=== PATIENT | male | born 1970 | race Caucasian/White ===

== ENCOUNTER 2022-08-05 10:53 | Emergency (ER) | payer BC, SELFPAY ==
[2022-08-05 10:54] VITALS: BP 190/110; PULSE 95; RESP 20; TEMP 35.8; O2SAT 98; BMI 49.0
--- NOTE | 2022-08-05 11:30 | EKG12_ITS ---
Test Reason : SOB Blood Pressure : / mmHG Vent. Rate : 078 BPM Atrial Rate : 078 BPM P-R Int : 166 ms QRS Dur : 100 ms QT Int : 386 ms P-R-T Axes : 040 -38 044 degrees QTc Int : 440 ms Normal sinus rhythm with sinus arrhythmia Left axis deviation Poor R wave progression Abnormal ECG Confirmed by ELDA GARCIA, LUZ ([id number]), primer expeditor and drier KP JUDGE ([id number]) on 08/09/2022 8:53:35 AM Referred By: YOLANDA Confirmed By:LUZ SCHROEDER MD
--- NOTE | 2022-08-05 11:31 | CT_ITS ---
STUDY: CT ABDOMEN AND PELVIS WITH CONTRAST REASON FOR EXAM: Male, 51 years old. LUQ abd pain RADIATION DOSAGE (If Supplied By Facility): CTDIvol = ( ) mGy, DLP = ( 1370.21 ) mGycm TECHNIQUE: Transaxial images were obtained from the dome of the diaphragm to the symphysis pubis without oral contrast. IV 100mL Isovue-300 was administered. Sagittal and coronal images were reconstructed. Individualized dose optimization techniques were used for this CT. COMPARISON: None. FINDINGS: The visualized lung bases are unremarkable. The visualized portions of the heart are within normal limits. There is decreased attenuation of the liver consistent with a mild degree of steatosis. There are multiple small gallstones. Normal spleen. Normal pancreas. Normal bilateral adrenal glands. Normal right kidney. Normal left kidney. There is a small hiatal hernia. The patient is status post partial gastrectomy. Normal small intestine. Normal colon. The appendix is visualized and appears normal. Normal abdominal aorta. Normal inferior vena cava. Normal retroperitoneum. Normal urinary bladder. There is evidence of prior ventral hernia repair. There are mild degenerative changes of the visualized lumbar spine. CT/Abdomen/Pelvis W IV Cont ONLY IMPRESSION: Multiple small gallstones. Status post partial gastrectomy. Mild degree of fatty infiltration of the liver. Electronically Signed: Boom Villa MD at 12:56 EST ,
--- NOTE | 2022-08-05 11:33 | ED.VIS.GI ---
HPI HPI - GI History of Present Illness Chief Complaint: Abd Pain Informant: patient Narrative Narrative: Patient is a 51-year-old male presenting with worsening left upper quadrant abdominal pain. Patient states July started having some left sided back pain in his thoracic area. This lasted for about a week and a half and then got better. He then started to have worsening pain in his left upper quadrant. This has now been going on for another week and a half. He notes over this time he has had a 28 pound weight loss, nausea with eating and oily odorous stools. He thinks he is probably eating slightly less than normal. He notes that he is straining a lot when he has a bowel movement and it is painful for him to try to urinate while standing. He gets pain in his left abdomen. He states he is never had any like this before. He continues to pass gas. He was on Toradol but it was not really helping. He states he states he is primary care doctor, Dr. Armijo, but he made him feel that he was pain seeking. Patient is have a history of Sara-en-Y gastric bypass in 2019 and subsequently a right surgical hernia repair. 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 He states he is unable to work for the past 3 weeks because of his pain. Denies any other complaints at this time. Denies any fever or chills. Denies any chest pain. No sometimes he feels short of breath but attributes it to his pain. Denies any swelling of his legs. [facility] Medical History Diabetes HTN (hypertension) Home Medications amlodipine 10 mg tablet 10 mg PO DAILY HTN 08/05/22 [History Last Taken 08/04/22] atorvastatin 10 mg tablet 10 mg PO DAILY CHOLESTEROL 08/05/22 [History Last Taken 08/04/22] lisinopril 40 mg tablet 40 mg PO DAILY HTN 08/05/22 [History Last Taken 08/04/22] metformin 500 mg tablet 500 mg PO BID DM 08/05/22 [History Last Taken 08/04/22] omeprazole 40 mg capsule,delayed release 40 mg PO DAILY GERD 08/05/22 [History Last Taken 08/04/22] sucralfate 1 gram tablet (Carafate) 1 g PO TID #20 tabs 08/05/22 [Rx Last Taken Unknown] Allergy/AdvReac Type Severity Reaction Status Date / Time No Known Allergies Allergy Verified 08/05/22 10:56 Social History Smoking Status: Never smoker ROS ROS ED Constitutional Constitutional ED: Reports weight loss; Denies chills or fever(s) Cardiovascular Cardiovascular: Denies chest pain Respiratory/Chest Respiratory/Chest: Reports dyspnea; Denies cough Gastrointestinal Gastrointestinal: Reports abdominal pain, constipation and nausea; Denies diarrhea, melena or vomiting Genitourinary Genitourinary ED: Denies dysuria, hematuria or urinary frequency Musculoskeletal Musculoskeletal: Reports back pain; Denies arthralgias or myalgias Integumentary Denies rash Neurologic Neurologic: Denies headache(s) or weakness Psychiatric Psychiatric: Denies anxiety Hematologic/Lymphatic Hematologic/Lymphatic: Denies easy bleeding or easy bruising EXAM Physical Exam Const Vital Signs: 08/05/22 10:54 08/05/22 13:04 08/05/22 15:30 Temperature 96.5 F L Temperature Source Temporal Pulse Rate 95 70 Respiratory Rate 20 H 18 18 Blood Pressure 190/110 H 153/90 H Blood Pressure Mean 136 111 Pulse Ox 98 98 Oxygen Delivery Method Room Air Room Air Positive well nourished, well developed and obese General Appearance ED: well developed and NAD; Negative for pallor Nutritional Appearance: obese HEENT Reports dry mucous membranes normocephalic and atraumatic Mouth ED: Yes dry mucous membranes Mouth: dry mucous membranes Eyes PERRL Neck supple and no JVD Resp normal respiratory effort and clear to auscultation bilaterally Cardio regular rate, regular rhythm and no murmurs GI GI Narrative: Protuberant abdomen. No fluid wave. No guarding. Mild tenderness palpation in the left upper quadrant. No peritoneal signs. Hypoactive bowel signs. Palpation: Negative for rigid Back/Spine no CVA tenderness Extremity full ROM General Extremety ED: Negative for edema or tenderness General Extremity: Negative for edema Neuro moves all extremities Sensorium / Orientation: alert, oriented to person, oriented to place and oriented to time Motor Exam: Negative for general weakness Psych mental status grossly normal and thought process normal Skin no wounds General Skin Exam: Negative for jaundice or pallor MDM MDM MDM Narrative Medical decision making narrative: Patient is evaluated for 3 weeks of what started as left back pain and now hs moved to his left upper abdomen. Vital signs are significant for high blood pressure but otherwise normal. Differential includes renal colic, muscle skeletal pain, constipation and colitis. Patient is treated with morphine, zofrans and fluids. He has some improvement of symptoms. Lab work largely unremarkable. He has a mild anemia with hemoglobin of 12.6 and I do not think this is causing or to start associate with the symptoms. CMP unremarkable. Glucose is mildly elevated at 151 however he is a normal anion gap. Patient does have a history of diabetes mellitus. Urinalysis shows occult blood of 10 however his red blood cells are normal. No signs of kidney infection patient urinalysis. CT of the abdomen pelvis shows multiple small gallstones and mild degree of fatty liver however no acute process. On repeat evaluation patient does have some mild tenderness with deep palpation of the right upper quadrant and I will add on a right upper quadrant ultrasound. It would be rare but possible that he has some biliary colic that is referring to his right side. Patient is given a dose of IV Toradol in the meantime as his pain is coming back. On repeat evaluation after ultrasound he states his pain is worsening in his left upper quadrant. Will trial a GI cocktail. Patient expresses frustration as he has been missing work for 3 weeks because of this pain and is no closer to any answers. Did explain that we did a pretty extensive work-up today and I will discussed with the surgery on-call to arrange for close outpatient follow-up. Case discussed with Dr. Pickering. He states it is possible that patient might have a ulcer at his anastomosis site. He will follow-up with the patient in the office. He recommends the patient keeping on extensive food diary to further evaluate causes and activities that worsen his pain. He recommends avoiding pain medicine or Carafate as he does not want to mask the symptoms until he can see him. This will be discussed with the patient. Repeat vital signs obtained and patient's blood pressure is improved. After GI cocktail patient does have improvement of symptoms. Patient is quite concerned about not having pain medicine I will prescribe him a course of Carafate which surgery felt was preferable to [place]. Patient reports that he does not smoke or use any tobacco products. Patient discharged and given outpatient follow-up instructions. Given return precautions. He is agreeable with plan of care. Lab Data Attestation: I reviewed the patient's lab results. Labs: Laboratory Results - last 24 hr 08/05/22 08/05/22 08/05/22 11:09 11:09 13:24 WBC 7.3 RBC 4.59 L Hgb 12.6 L Hct 38.9 L MCV 84.7 MCH 27.5 MCHC 32.4 RDW Std Deviation 50.4 H RDW Coeff of Darling 16.5 H Plt Count 298 MPV 10.2 Immature Gran % (Auto) 0.100 Neut % (Auto) 69.5 Lymph % (Auto) 19.7 Pope % (Auto) 6.6 Eos % (Auto) 3.8 Baso % (Auto) 0.3 Absolute Neuts (auto) 5.1 Absolute Lymphs (auto) 1.44 Nucleated RBC % 0 Sodium 135 L Potassium 4.2 Chloride 104 Carbon Dioxide 26.0 Anion Gap 5 BUN 13 Creatinine 1.12 Estim Creat Clear Calc 82.17 Est GFR (MDRD) Af Amer 88 Est GFR (MDRD) Non-Af 73 BUN/Creatinine Ratio 11.6 Glucose 151 H Calcium 9.4 Total Bilirubin 0.60 AST 14 L ALT 20 Alkaline Phosphatase 40 L Total Protein 10.2 H Albumin 3.2 Globulin 7.0 H Albumin/Globulin Ratio 0.5 L Lipase 132 Urine Color Yellow Urine Clarity Clear Urine pH 5.0 Ur Specific [place] 1.010 Urine Protein Negative Urine Glucose (UA) Normal Urine Ketones Negative Urine Occult Blood 10 H Urine Nitrite Negative Urine Bilirubin Negative Urine Urobilinogen Normal Ur Leukocyte Esterase Negative Urine RBC 0 SEEN Urine WBC 0 SEEN Ur Squamous Epith Cells 0 SEEN Urine Bacteria 0 SEEN Urine Mucus 0 SEEN Radiography Diagnostic Testing: Clinical Impression(s) from Imaging Studies Abdomen/Pelvis CT 08/05/22 11:31 IMPRESSION: Multiple small gallstones. Status post partial gastrectomy. Mild degree of fatty infiltration of the liver. Electronically Signed: Boom Villa MD at 12:56 EST , Gallbladder Ultrasound 08/05/22 13:40 IMPRESSION: Hepatomegaly and diffuse fatty infiltration of the liver. Multiple small gallstones in the neck of the gallbladder. Electronically Signed: Boom Villa MD at 15:12 EST , Rhythm Strip Rhythm Strip: Sinus Rhythm Rate: 78 Ectopy: None EKG Initial EKG: Attestation: I personally reviewed and interpreted this EKG as follows: Interpretation: Sinus Rhythm Comments: Normal sinus rhythm with sinus arrhythmia at a rate of 78 bpm Left axis Normal intervals Normal ST segments Prior EKG tracings: not available for review Discharge Plan Triage Chief Complaint: Abd Pain ED Provider: Kianna Holloway Dx/Rx/DC Orders Clinical Impression: Colicky left upper quadrant pain, Gallstones, History of gastric bypass Instructions: ED Gastritis Ulcer No Abx Prescriptions: New sucralfate [Carafate] 1 gram tablet 1 g PO TID Qty: 20 0RF No Action metformin 500 mg Tablet 500 mg PO BID atorvastatin 10 mg Tablet 10 mg PO DAILY omeprazole 40 mg Capsule,Delayed Release(Dr/Ec) 40 mg PO DAILY amlodipine 10 mg tablet 10 mg PO DAILY lisinopril 40 mg Tablet 40 mg PO DAILY Primary Care Provider: Rory Armijo Referrals: Adam Pickering MD [Med Staff - Active Staff] - As soon as possible Rory Armijo MD [Primary Care Provider] - Activity Restrictions/Additional Instructions: It is possible you could have an ulcer at your prior surgical site from your gastric bypass. I spoke with the surgeon, Dr. Pickering, who recommend you keep a detailed food diary as well as a diary of anything that seems to worsen your pain/symptoms for when you follow-up with him. Continue taking your antacid (omeprazole). You have also been prescribed Carafate which coats the stomach to hopefully help with your symptoms. Take it before you eat. Return to the ER if you have a progression or worsening of your symptoms. You do have gallstones however I do not think these are the cause of your symptoms at this time. Again, please follow-up with Dr. Pickering for definitive management of your gallstones. Disposition Disposition: Home, Self Care
[2022-08-05] MEDS: morphine 8 MG/ML Syringe IV (11:38)
[2022-08-05] MEDS: 0.9% Normal Saline 1,000 ML 1000 ML IV (11:38)
[2022-08-05] MEDS: Ondansetron 4 MG/2 ML Vial IV (11:38)
[2022-08-05 11:43] LABS: Absolute Lymphocyte Count 1.44 X10^3/uL (0.83-4.51); Absolute Neutrophil Count 5.1 X10^3/uL (2.0-7.7); Basophil# 0.02 X10^3/uL; Basophil% 0.3 % (0-1); Eosinophil# 0.28 X10^3/uL; Eosinophils% 3.8 % (0-5); Hematocrit 38.9 % (40-54); Hemoglobin 12.6 g/dL (13.0-16.5); Lymphocyte # 1.44 X10^3/ul (0.83-4.51); Lymphocyte % 19.7 % (19-41); Mean Corp Hgb Conc 32.4 g/dL (32-36); Mean Corpuscular Hgb 27.5 pg (27.0-32.0); Mean Corpuscular Volume 84.7 fL (80-94); Mean Platelet Vol. 10.2 fl (6.2-12.0); Monocyte# 0.48 X10^3/uL; Monocyte% 6.6 % (0-10); NRBC Flagged by Analyzer 0 % (0-5); Neutrophil # 5.07 X10^3/uL (2.7-7.7); Neutrophil % 69.5 % (47-70); Platelet Count 298 K/mm3 (150-450); RBC Distribution Width CV 16.5 % (11.6-14.6); RBC Distribution Width SD 50.4 fl (35.1-43.9); Red Blood Count 4.59 M/mm3 (4.6-6.2); White Blood Count 7.3 K/mm3 (4.4-11.0)
[2022-08-05 12:01] LABS: ALB/GLOB Ratio 0.5 RATIO (0.9-2.4); AST(SGOT) 14 U/L (15-37); Alanine Aminotransfer ALT/SGPT 20 U/L (16-61); Albumin, Serum 3.2 g/dL (3.2-5.0); Alkaline Phosphatase 40 U/L (45-117); Anion Gap 5 (5-15); BUN 13 mg/dL (7-18); BUN/Creat Ratio 11.6 RATIO (10-20); Calcium,Total 9.4 mg/dL (8.5-10.1); Chloride 104 mmol/L (98-107); Creatinine, Serum 1.12 mg/dL (0.70-1.30); EST Glomerular Filtration Rate 73 mL/min (>60); Est Glom Filt Rate - Afr Amer 88 mL/min (>60); Estimated Creatinine Clearance 82.17 ml/min; Glucose 151 mg/dL (74-106); Lipase 132 U/L (73-393); Potassium 4.2 mmol/L (3.5-5.1); Protein, Total 10.2 g/dL (6.4-8.2); Sodium Level 135 mmol/L (136-145)
[2022-08-05 13:04] VITALS: RESP 18
[2022-08-05 13:33] LABS: Bacteria 0 SEEN /hpf (None Seen); Mucous, Urine 0 SEEN /hpf (<or=2+); Red Blood Cells-Urine 0 SEEN /hpf (0-5); Squamous Epithelial Cells - UA 0 SEEN /hpf (0-5); White Blood Cells 0 SEEN /hpf (0-5)
[2022-08-05 13:36] LABS: Color, Urine Yellow (Yellow); Glucose, Dipstick Normal (Normal); Ketone-Dipstick Negative (Negative); Leukocyte Esterase-Dipstick Negative /ul (Negative); Nitrite-Dipstick Negative (Negative); Occult Blood-Urine 10 /ul (Negative); Protein-Dipstick Negative (Negative); Urine Bilirubin Dipstick Negative (Negative); Urine Clarity Clear (Clear); Urine Urobilinogen Normal (Normal)
--- NOTE | 2022-08-05 13:40 | US_ITS ---
STUDY: ABDOMINAL ULTRASOUND - RIGHT UPPER QUADRANT REASON FOR VISIT: Male, 51 years old gallstones, upper abd pain TECHNIQUE: Ultrasound evaluation of the right upper quadrant was performed with real-time and static interiano-scale imaging. TECHNICAL QUALITY: Adequate. COMPARISON: Comparison is made with prior CT scan of the abdomen and pelvis done earlier in the day. FINDINGS: Liver: The liver is enlarged and measures 19.5 cm. There is increased echogenicity consistent with fatty infiltration. The bile ducts are within normal limits. There is hepatic color flow. The direction of portal flow is hepatopetal. There is no demonstrated mass lesion. Gallbladder: There is a mildly distended gallbladder. The gallbladder wall measures 2.2 mm. There is a positive sonographic Dasilva''s sign. There is no pericholecystic fluid. There are multiple echogenic structures within the gallbladder, consistent with multiple gallstones. Common Bile Duct (C.B.D.): The common bile duct measures 4.5 mm. Pancreas: Normal size of the head, body and tail of the pancreas. There is normal echogenicity of the pancreas. There is no demonstrated pancreatic mass or cyst. Right Kidney: Normal size of the right kidney. The right kidney measures 11.7 cm x 6 x 5.5 cm. Normal renal cortex. The right cortex measures 2.1 cm. There is no demonstrated renal mass or cyst. There is no right hydronephrosis. US/Gallbladder IMPRESSION: Hepatomegaly and diffuse fatty infiltration of the liver. Multiple small gallstones in the neck of the gallbladder. Electronically Signed: Boom Villa MD at 15:12 EST ,
[2022-08-05] MEDS: Ketorolac 15 MG/ML Vial IV (14:42)
[2022-08-05 15:30] VITALS: BP 153/90; PULSE 70; RESP 18; O2SAT 98
[2022-08-05] MEDS: Mag Hydrox/Al Hydrox/Simeth 30 ML UDC PO (15:30)
== END 2022-08-05 16:16 | disposition home or self-care (01) ==
PROVIDERS: Emergency Provider Emergency Medicine; PCP Internal Medicine; Visit Provider Emergency Medicine
DX: K80.20 Calculus of gallbladder without cholecystitis without obstruction (principal); E11.65 Type 2 diabetes mellitus with hyperglycemia; I10 Essential (primary) hypertension; Z98.890 Other specified postprocedural states; Z79.899 Other long term (current) drug therapy; Z98.84 Bariatric surgery status
CPT/HCPCS: 74177; 76705; 80053; 81001; 83690; 85025; 93005; 96361; 96374; 96375; 99284; J7030; Q9967; A4216; J2405

== ENCOUNTER → 2022-08-15 | Outpatient (CLI) | payer BC, SELFPAY | END | disposition home or self-care (01) | LOC: LABSPEC 10:41 | PROVIDERS: PCP Internal Medicine; Referring Provider Surgery; Visit Provider Surgery | DX: K92.1 Melena (principal) | CPT/HCPCS: 82274 ==

== ENCOUNTER 2022-08-18 06:24 | Day surgery (SDC) | payer BC, SELFPAY ==
[2022-08-18 07:08] VITALS: BP 152/99; PULSE 117; RESP 18; TEMP 37.1; O2SAT 100; BMI 46.7
[2022-08-18] MEDS: Lactated Ringers 1,000 ML 15 ML IV (07:15)
--- NOTE | 2022-08-18 07:30 | IMM_PTH ---
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 Adam Pickering MD : 1970 BED: DIS: 08/18/2022 SPEC #: [id number] RECD: 08/18/22 14:07 STATUS: MARY RESukumar #: [id number] SUSANNAH: 08/18/22 07:[address]: Adam Pickering DEPT: IMMUNOHISTOCHEMISTRY RECD BY: Keiko Styles ENTERED: 08/18/22 14:08 SP TYPE: IMMUNO OTHR DR: Rory Armijo MD Tissues: A - Stomach, NOS Procedures: H Pylori (initial) PHYSICIAN & INSTITUTION [place] [id number] SPECIMEN INFORMATION: Tissue Source: A ? Gastric pouch Clinical Info: Abdominal pain, tarry stool, nausea, gallstones, constipation Specimen Number: [id number] CPT code: 70879 METHODOLOGY: Deparaffinized sections of prefer/formalin-fixed tissue or PAP/DQ stained slides are incubated with monoclonal/polyclonal antibodies/oligonucleotide probes. Localization is made via biotin free immunoperoxidase method. Appropriate controls are performed and reacted as expected. Results on target cell population are indicated in the following table: RESULTS: ANTIBODY / CLONE RESULT Block A H Pylori (polyclonal) negative These tests were developed and their performance characteristics determined by [facility]. They may not have been cleared or approved by the [place]. Food and Drug Administration. The FDA has determined that such clearance or approval is not necessary. The above immunohistochemical/dualISH markers are ordered and reviewed by the Pathologist. INTERPRETATION: A. Gastric pouch, biopsy: Negative for Helicobacter pylori organisms. SJ:lance 08/19/2022
--- NOTE | 2022-08-18 07:30 | EGD_PTH ---
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 Adam Pickering MD : 1970 BED: DIS: 08/18/2022 SPEC #: [id number] RECD: 08/18/22 11:03 STATUS: MARY CRAVENSukumar #: [id number] SUSANNAH: 08/18/22 07:[address]: Adam Pickering DEPT: SURGICAL PATHOLOGY RECD BY: Gwendolyn Ng ENTERED: 08/18/22 11:51 SP TYPE: EGD BIOPSY OTHR DR: Rory Armijo MD Tissues: A - Gastric mucous membrane B - Esophagus, NOS C - Rectum, NOS Procedures: Special Stain Group II Surgery Specimen Level IV Alcian Blue/PAS (control) HEADER OPERATION: Colonoscopy, EGD (MAC), biopsy PRE-OP DIAGNOSIS: Abdominal pain, tarry stool, history gastric bypass, nausea, gallstones, weight loss, constipation TISSUE SUBMITTED: A - Gastric pouch biopsy, B - Gastroesophageal junction biopsy, C - Rectal biopsy MICROSCOPIC DIAGNOSIS A. Gastric pouch, biopsy: Mild gastritis. See microscopic description and comment. B. Gastroesophageal junction, biopsy: A fragment of gastroesophageal mucosa with chronic inflammation. Intestinal metaplasia (goblet cell metaplasia) not identified. See comment. C. 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 See comment. SJ:lance 08/19/2022 COMMENT A. The results of immunohistochemistry for Helicobacter pylori will be reported separately ([id number]). B. Alcian blue/PAS stain with matched control is used in the evaluation of the specimen. C. Numerous muciphages are also noted. Correlation with clinical, endoscopic findings and appropriate follow up are necessary. MICROSCOPIC DESCRIPTION Slides are reviewed. A. The specimen shows fragments of gastric mucosa with chronic inflammatory cell infiltrates in the lamina propria consisting of lymphocytes and plasma cells, consistent with mild chronic gastritis. GROSS DESCRIPTION A - Received in fixative is one container labeled with the patient's name and designated gastric pouch biopsy. The specimen consists of one irregular fragment of light nichols soft tissue that measures 0.4 x 0.3 x 0.1 cm. The specimen is totally submitted in one cassette. B - Received in fixative is one container labeled with the patient's name and designated GE junction biopsy. The specimen consists of one irregular fragment of light nichols soft tissue that measures 0.6 x 0.2 x 0.1 cm. The specimen is totally submitted in one cassette. C - Received in fixative is one container labeled with the patient's name and designated rectal biopsy. The specimen consists of multiple irregular fragments of light nichols soft tissue that in aggregate measure 0.8 x 0.3 x 0.1 cm. The specimen is totally submitted in one cassette. / SJ:rg 08/18/2022 TC:3 CPT: 42291 x3, [id number]
--- NOTE | 2022-08-18 07:37 | PCM.HP.BLA ---
History and Physical Date of Admission: 08/18/22 Date of Service:? 08/10/22 MR#: [id number] Acct: [id number] Name:OJVITA QUEZADA Rep #: [id number] : 1970 ? ? Provider: Dr. Adam Pickering MD Age/Sex:? 51/M ? ? Location: [facility] Status: Signed Intake Vital Signs ? 08/05/2309:54 08/11/2311:58 Height 5 ft 11 in 5 ft 11 in Weight: 351 lb 8 oz 346 lb BMI 49.0 48.2 BP 190/110 H 177/126 H Blood Pressure Location ? Rt brachial Position ? Sitting Respiration 20 H 19 H Pulse 95 102 H Pulse Source ? Monitor Temp 96.5 F L 97.7 F L Temp Source Temporal Temporal Pulse Oximetry (%) 98 98 Oxygen Delivery Method ? room air Intake Visit Reasons:?ED 08/07 [facility] Chief Complaint: F/U ED Gallstones Banquet Server Required: No Is patient in pain?: No Allergies No Known Allergies Allergy (Verified 08/10/22 12:59) Medications amlodipine 10 mg tablet 10 mg PO DAILY HTN 08/05/22 [History Confirmed 08/10/22] atorvastatin 10 mg tablet 10 mg PO DAILY CHOLESTEROL 08/05/22 [History Confirmed 08/10/22] lisinopril 40 mg tablet 40 mg PO DAILY HTN 08/05/22 [History Confirmed 08/05/22] metformin 500 mg tablet 500 mg PO BID DM 08/05/22 [History Confirmed 08/10/22] omeprazole 40 mg capsule,delayed release 40 mg PO DAILY GERD 08/05/22 [History Confirmed 08/10/22] tramadol 50 mg tablet 50 mg PO Q6H PRN pain #30 tabs 08/10/22 [Rx Confirmed 08/10/22] PFSH Medical History? Diabetes HTN (hypertension) Social History?(Updated 08/10/22 @ 12:58 by Micheline Monday) Smoking Status:? Never smoker alcohol intake:? never substance use type:? does not use HPI HPI HPI: Patient is a 51 male who presents for a number of complaints of back and abdominal pain following an ER visit 08/05/2022.? They are referred for surgical consultation from Dr. Holloway emergency medicine. ? Pain is described as sharp and beginning approximately 1 month ago on 07/15/2022.? 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 When this pain persisted over the next couple days he sought evaluation at an outside hospital ER.? There he was prescribed painkillers and muscle relaxers.? He states that he then followed up with his primary care provider, Dr. Armijo and it was around the same time that he began with severe pain along his left side.? He notes that these pains seem to move downward from a left upper quadrant position.? He reports this pain as a intensity of 7/10 and more severe than the right-sided pains which have only been felt in the last couple of days.? He reports the intensity of these pains as a 4-5/10.? This discomfort has been so significant that he has been sleeping in a recliner for the last 4 weeks.? He also notes a weight loss of over 30 pounds since this pain started.? Lastly he is reporting tarry stools with a bad smell.? He denies recording any objective fevers, but gets hot at times and experiences chills.? He denies any relation of the pain to eating, does experience pain and nausea after eating.? To try to manage the pain he was previously taking tramadol which worked for 4 hours but then the pain returned.? He is also taking 6 to 8 tablets of Advil a day without food. Mr. Qureshi relates a past surgical history of a open gastric bypass procedure in October 1999 at [facility] in [facility].? He reports that this operation was complicated by a postoperative hernia within a few months after the operation due to lifting more than he should have.? This hernia was repaired with a second operation and he confirms that mesh was used.? He reports a good result with his bariatric surgery going from a maximum weight of 640 pounds preoperatively to a lowest weight of 260 pounds postoperatively.? He then states that he went to be evaluated for possible panniculectomy, but was denied insurance coverage and in an act of defiance he reports that he stopped doing what they said (that is what his medical doctor said).? He states that he has not been seen since 2000 or 2001.? He denies any history of ulcers.? He denies any tobacco use.? He has not ever undergone either upper or lower endoscopy. Patient complains of constipation along with his upper abdominal discomfort and reports that his bowel movements occur with a frequency of only once every 4 days.? This has been true for the last 4 weeks or so.? He does not have a history of constipation beyond this timeframe.? He notes that his toilet time is roughly 5 minutes and is marked by significant straining.? He has no history of hemorrhoids.? He has no personal history of diverticulitis.? He admits that he does not have a clear family history given his adopted status. He has no prior history of reflux or heartburn.? Bloating has been a problem in the last couple of days. When asked about any possible radiculopathy symptoms, he denies any weakness, burning, or numbness of his upper extremities.? He does admit to pain in his left upper thigh radiating to his back on occasion when walking. ER work-up included CT of the abdomen pelvis as well as right upper quadrant ultrasound after the CT demonstrated evidence of cholelithiasis.? Ultrasound confirmed this finding of cholelithiasis and agricultural engineering technicians reported positive sonographic Dasilva sign. ROS General General: Yes weight change and fatigue; No appetite, colon cancer, breast cancer or weakness Additional Details: Loss of 31 pounds in last month HEENT HEENT: No difficulty swallowing, eye injury, eye surgery, swollen glands or hoarseness Endo Endocrine: Yes diabetes mellitus; No thyroid disease, thyroid cancer, Hair loss, heat intolerance or cold intolerance Skin Skin: No rash or changing moles Musc Musculoskeletal: No back problems, arthritis, rheumatoid arthritis, gout or joint pain Cardio Cardiovascular: Yes high blood pressure; No murmur, pacemaker, heart disease, atrial fibrillation, heart attack, heart stent, palpitations, shortness of breat with exertion or chest pain Psych Psychiatric: No depression, anxiety or hearing voices Resp Respiratory: No shortness of breath, No sleep apnea, No cough, No COPD, No asthma, No emphysema and No wheezing Gastro Gastrointestinal: Yes abdominal pain, Yes nausea or vomiting, No diarrhea, No constipation, No blood in stool, No acid reflux, No hemorrhoids, No ulcers, No gallbladder problem and Yes black,tarry stools Ishmael Hematologic: No blood thinners, No blood disorders, No bleeding, No anemia and No blood clots Neuro Neurologic: No system reviewed and no additional complaints, except as documented, No as per HPI, No abnormal gait, No abnormal hearing, No abnormal movements, No abnormal speech, No behavioral changes, No burning sensations, No confusion, No convulsions, No disequilibrium, No dizziness, No localized weakness, No frequent falls, No headache(s), No lack of coordination, No loss of vision, No memory loss, No numbness, No other visual disturbances, No radicular pain, No restless legs, No sensory deficit, No syncope, No tingling, No tremor(s), No weakness and No other Exam Const General: in distress moderate (From discomfort) and anxious Orientation: alert, awake and oriented x3 Resp Effort & Inspection: normal respiratory effort GI Other: Morbidly obese, large well?healed midline laparotomy incision.? Nondistended.? Soft and tender in the right upper and left upper quadrants.? Patient has much more significant tenderness in the left upper quadrant in the right upper quadrant.? Patient has a negative Dasilva sign of the right upper quadrant.? There is slight voluntary guarding with palpation of the left upper quadrant. Musc Other: Paraspinal tenderness present bilaterally with palpation Assessment and Plan Assessment and Plan (1) Abdominal pain: ?Status:?Acute ?Comment: Left greater than right.? Partially reproducible with palpation.? Negative Dasilva sign.? Suspicion for involvement of gastric bypass anatomy. ?Plan: ? Cessation of NSAIDs ? Consistent PPI and Carafate use ? Tramadol 50 mg as needed for pain ? EGD to evaluate gastric pouch and Sara limb in urgent fashion (2) Tarry stool: ?Status:?Acute ?Comment: Potentially related to upper GI ulcer. ?Plan: ? Obtain fecal occult blood testing ? Diagnostic colonoscopy (3) History of gastric bypass: ?Status:?Acute ?Comment: History of Sara-en-Y gastric bypass with use of NSAID pain medications for recent back pain.? Potentially complicated by new ulcer. ?Plan: ? PPI, Carafate, EGD planned as above (4) Nausea: ?Status:?Acute (5) Gallstones: ?Status:?Acute ?Comment: Potentially incidental finding.? Exam does not clearly point to this as a source and cholecystectomy could involve significant operative risk with patient's post bypass anatomy?particularly given this was an open procedure followed by a open hernia repair with mesh.? There are also implications for accessing the biliary tree given the division of the stomach. (6) Weight loss, abnormal: ?Status:?Acute (7) Constipation: ?Status:?Acute ?Comment: Accompanied by reports of tarry stools is a 51-year-old male with no history of prior colonoscopy.? Family history unknown. ?Plan: Diagnostic colonoscopy recommended.? Plan for 2-day prep given reports of significant constipation. ? ? ? Orders: Orders Stool Occult Blood iFOB Today K92.1 - Melena ? I have examined the patient the following changes are noted: I reviewed with patient that his fecal occult blood testing mentioned above did return positive. Patient states that overall his pain has been improved with the regimen we instituted until this morning when it flared up because he was unable to take his pain medication. He reports completion of his prep and that his output is now clear. We will therefore proceed with diagnostic upper and lower endoscopy under local MAC as discussed above.
[2022-08-18 07:50] LABS: Bedside Glucose 188 mg/dL (74-106)
[2022-08-18 08:55] VITALS: BP 130/91; BP 152/99; PULSE 121; RESP 18; TEMP 36.9; O2SAT 93
[2022-08-18 09:00] VITALS: BP 139/94; BP 152/99; PULSE 117; RESP 16; O2SAT 95
[2022-08-18 09:05] VITALS: BP 137/79; BP 152/99; PULSE 107; RESP 18; O2SAT 94
--- NOTE | 2022-08-18 09:05 | OP.EGD_ITS ---
Patient Name: Willie Qureshi Procedure Date: 08/18/2022 7:14 AM Date of : 1970 Age: 51 Procedure: Upper GI endoscopy Indications: Abdominal pain in the left upper quadrant, Occult blood in stool Providers: Adam Pickering MD Referring MD: Adam Pickering MD Medicines: See the Anesthesia note for documentation of the administered medications Patient Profile: Refer to note in patient chart for documentation of history and physical. Complications: No immediate complications. Estimated blood loss: Minimal. Procedure: Pre-Anesthesia Assessment: - The heart rate, respiratory rate, oxygen saturations, blood pressure, adequacy of pulmonary ventilation, and response to care were monitored throughout the procedure. After obtaining informed consent, the endoscope was passed under direct vision. Throughout the procedure, the patient's blood pressure, pulse, and oxygen saturations were monitored continuously. The gastroscope was introduced through the mouth, and advanced to the jejunum. The upper GI endoscopy was somewhat difficult due to post-surgical anatomy. The patient tolerated the procedure fairly well. Scope In: 7:45:58 AM Scope Out: 7:58:05 AM Total Procedure Duration Time 0 hours 12 minutes 7 seconds Findings: Two non-bleeding superficial gastric ulcers with no stigmata of bleeding were found at the anastomosis. Biopsies were taken with a cold forceps for histology. Estimated blood loss was minimal. Diffuse mild inflammation characterized by erythema was found in the gastric body. No biopsies or other specimens were collected for this exam. The Z-line was irregular. Biopsies were taken with a cold forceps for histology. Estimated blood loss was minimal. The exam was otherwise without abnormality. Evidence of a gastric bypass was found. A gastric pouch with a normal size was found containing ulceration. The staple line appeared intact. The gastrojejunal anastomosis was characterized by erythema. This was traversed. The utpdj-iv-jroapyb limb was characterized by inflammation and ulceration. The jejunojejunal anastomosis was characterized by healthy appearing mucosa. Impression: - Non-bleeding gastric ulcers with no stigmata of bleeding. Biopsied. - Gastritis. No specimens collected. - Z-line irregular. Biopsied. - The examination was otherwise normal. - Gastric bypass with a normal-sized pouch and intact staple line. Gastrojejunal anastomosis characterized by erythema. Recommendation: - Discharge patient to home (via wheelchair). - Resume previous diet today. - Continue present medications. - Await pathology results. - Telephone my office for pathology results in 1 week. Procedure Code(s): --- Professional --- 08442, Esophagogastroduodenoscopy, flexible, transoral; with biopsy, single or multiple Diagnosis Code(s): --- Professional --- K25.9, Gastric ulcer, unspecified as acute or chronic, without hemorrhage or perforation K29.70, Gastritis, unspecified, without bleeding K22.8, Other specified diseases of esophagus Z98.84, Bariatric surgery status R10.12, Left upper quadrant pain R19.5, Other fecal abnormalities CPT copyright 2017 [employer]. All rights reserved. The codes documented in this report are preliminary and upon maitre d review may be revised to meet current compliance requirements. Adam Pickering MD 08/18/2022 9:05:38 AM This report has been signed electronically. Number of Addenda: 0 Note Initiated On: 08/18/2022 7:14 AM
--- NOTE | 2022-08-18 09:07 | OP.CCLET_ITS ---
08/18/2022 Rory Armijo Md Re : Upper GI endoscopy procedure for Willie Qureshi Dear Aleksander This procedure was performed on August. My impressions and recommendations are as follows: Impressions : - Non-bleeding gastric ulcers with no stigmata of bleeding. Biopsied. - Gastritis. No specimens collected. - Z-line irregular. Biopsied. - The examination was otherwise normal. - Gastric bypass with a normal-sized pouch and intact staple line. Gastrojejunal anastomosis characterized by erythema. Recommendations : - Discharge patient to home (via wheelchair). - Resume previous diet today. - Continue present medications. - Await pathology results. - Telephone my office for pathology results in 1 week. My findings are described in the full procedure note, which is enclosed. If I can be of further assistance, please feel free to contact me at Doctor phone number(s): , Work: . Sincerely, Adam Pickering MD 08/18/2022 9:05:38 AM This report has been signed electronically.
[2022-08-18 09:10] VITALS: BP 133/81; BP 152/99; PULSE 102; RESP 16; TEMP 36.8; O2SAT 95
--- NOTE | 2022-08-18 09:14 | OP.COLON_ITS ---
Patient Name: Willie Qureshi Procedure Date: 08/18/2022 7:59 AM Date of : 1970 Age: 51 Procedure: Colonoscopy Indications: Abdominal pain in the left upper quadrant, Heme positive stool, Constipation Providers: Adam Pickering MD Referring MD: Adam Pickering MD Medicines: See the Anesthesia note for documentation of the administered medications Patient Profile: Refer to note in patient chart for documentation of history and physical. Last Colonoscopy: none. The patient's first colonoscopy is today. Complications: No immediate complications. Estimated blood loss: Minimal. Procedure: Pre-Anesthesia Assessment: - The heart rate, respiratory rate, oxygen saturations, blood pressure, adequacy of pulmonary ventilation, and response to care were monitored throughout the procedure. - The heart rate, respiratory rate, oxygen saturations, blood pressure, adequacy of pulmonary ventilation, and response to care were monitored throughout the procedure. After I obtained informed consent, the scope was passed under direct vision. Throughout the procedure, the patient's blood pressure, pulse, and oxygen saturations were monitored continuously. The Colonoscope was introduced through the anus and advanced to the cecum, identified by its appearance. The colonoscopy was technically difficult and complex due to poor bowel prep and significant looping. Successful completion of the procedure was aided by changing the patient's position and lavage. The patient tolerated the procedure well. The quality of the bowel preparation was fair. Scope In: 8:01:29 AM Scope Withdrawal Time 0 hours 23 minutes 42 seconds Scope Out: 8:50:57 AM Total Procedure Duration Time 0 hours 49 minutes 28 seconds Findings: There was a large lipoma, in the proximal ascending colon. No biopsies or other specimens were collected for this exam. Localized mild mucosal changes characterized by congestion (edema) and granularity were found in the proximal rectum. Biopsies were taken with a cold forceps for histology. Estimated blood loss was minimal. The exam was otherwise without abnormality on direct and retroflexion views. Impression: - Preparation of the colon was fair. - Large lipoma in the proximal ascending colon. No specimens collected. - Localized mild mucosal changes were found in the proximal rectum. Biopsied. - The examination was otherwise normal on direct and retroflexion views. Recommendation: - Discharge patient to home (via wheelchair). - Resume previous diet today. - Continue present medications. - Await pathology results. - Repeat colonoscopy date to be determined after pending pathology results are reviewed for surveillance based on pathology results. - Telephone my office for pathology results in 1 week. Procedure Code(s): --- Professional --- 43733, Colonoscopy, flexible; with biopsy, single or multiple Diagnosis Code(s): --- Professional --- D17.5, Benign lipomatous neoplasm of intra-abdominal organs K62.89, Other specified diseases of anus and rectum R10.12, Left upper quadrant pain R19.5, Other fecal abnormalities K59.00, Constipation, unspecified CPT copyright 2017 [employer]. All rights reserved. The codes documented in this report are preliminary and upon invoice coder review may be revised to meet current compliance requirements. Adam Pickering MD 08/18/2022 9:13:47 AM This report has been signed electronically. Number of Addenda: 0 Note Initiated On: 08/18/2022 7:59 AM
--- NOTE | 2022-08-18 09:14 | OP.CCLET_ITS ---
08/18/2022 Rory Armijo Md Re : Colonoscopy procedure for Willie Qureshi Dear Aleksander This procedure was performed on August. My impressions and recommendations are as follows: Impressions : - Preparation of the colon was fair. - Large lipoma in the proximal ascending colon. No specimens collected. - Localized mild mucosal changes were found in the proximal rectum. Biopsied. - The examination was otherwise normal on direct and retroflexion views. Recommendations : - Discharge patient to home (via wheelchair). - Resume previous diet today. - Continue present medications. - Await pathology results. - Repeat colonoscopy date to be determined after pending pathology results are reviewed for surveillance based on pathology results. - Telephone my office for pathology results in 1 week. My findings are described in the full procedure note, which is enclosed. If I can be of further assistance, please feel free to contact me at Doctor phone number(s): , Work: . Sincerely, Adam Pickering MD 08/18/2022 9:13:47 AM This report has been signed electronically.
[2022-08-18 09:27] VITALS: BP 152/99
== END 2022-08-18 09:35 | disposition home or self-care (01) ==
LOC: EN 06:26 → AC 06:28
PROVIDERS: PCP Internal Medicine; Referring Provider Surgery; Visit Provider Surgery
PROC: 0DJD8ZZ Inspection of Lower Intestinal Tract, Via Natural or Artificial Opening Endoscopic (ICD-10-PCS; CPT 45378; principal; 2022-08-18 07:25)
DX: K29.70 Gastritis, unspecified, without bleeding (principal); E11.9 Type 2 diabetes mellitus without complications; K80.20 Calculus of gallbladder without cholecystitis without obstruction; R19.5 Other fecal abnormalities; K59.00 Constipation, unspecified; K25.9 Gastric ulcer, unspecified as acute or chronic, without hemorrhage or perforation; M54.9 Dorsalgia, unspecified; R14.0 Abdominal distension (gaseous); Z98.84 Bariatric surgery status; R10.12 Left upper quadrant pain; D17.5 Benign lipomatous neoplasm of intra-abdominal organs; K62.89 Other specified diseases of anus and rectum
CPT/HCPCS: 45380; 43239; 82962; 88305; 88313; 88342; J7120; J2405

== ENCOUNTER 2022-09-02 10:03 | Emergency (ER) | payer BC, SELFPAY ==
[2022-09-02 10:04] VITALS: BP 187/122; PULSE 100; RESP 16; TEMP 36.2; O2SAT 100; BMI 46.1
--- NOTE | 2022-09-02 10:23 | EDS_ITS ---
HPI History of Present Illness Chief Complaint: Abd Pain Narrative Narrative: 51-year-old male here with abdominal pain, back pain notes pain is overall for several months. States he initially injured his back at work several months ago. Patient denies any saddle anesthesia, urinary tension, bowel or bladder incontinence, lower extremity weakness, fever or IV drug use, no recent spinal manipulation or surgery, no recent urinary catheterization. He also notes abdominal pain early satiety decreased appetite and nausea. He endorses 50 pound weight loss over the last couple months that is unintentional. Denies any history of cancer. States he is follow-up with GI and had colonoscopy and EGD with no significant findings [facility] Medical History (Updated 09/02/22 @ 15:[address] Ankit Smith, DO) Alcohol use Back pain CPAP (continuous positive airway pressure) dependence Diabetes Dietary restriction High cholesterol HTN (hypertension) Non-smoker Wears dentures Home Medications amlodipine 10 mg tablet 10 mg PO DAILY HTN 08/05/22 [History Last Taken 08/04/22] atorvastatin 10 mg tablet 10 mg PO DAILY CHOLESTEROL 08/05/22 [History Last Taken 08/04/22] lisinopril 40 mg tablet 40 mg PO DAILY HTN 08/05/22 [History Last Taken 08/04/22] metformin 500 mg tablet 500 mg PO BID DM 08/05/22 [History Last Taken 08/04/22] omeprazole 40 mg capsule,delayed release 40 mg PO DAILY GERD 08/05/22 [History Last Taken 08/04/22] tramadol 50 mg tablet 50 mg PO Q6H PRN pain #30 tabs 08/10/22 [Rx Last Taken Unknown] cinnamon bark 500 mg capsule (Cinnamon) 1,200 mg PO DAILY 08/11/22 [History Last Taken Unknown] ondansetron 4 mg disintegrating tablet 4 mg PO Q8H PRN PRN Nausea #10 tabs 09/02/22 [Rx Last Taken Unknown] oxycodone 5 mg capsule 5 mg PO Q8H PRN pain 14 days #42 caps 09/02/22 [Rx Last Taken Unknown] Allergy/AdvReac Type Severity Reaction Status Date / Time No Known Allergies Allergy Verified 09/02/22 10:04 Surgical History Hx of gastric bypass Hx of umbilical hernia repair Social History (Updated 08/10/22 @ 12:58 by Micheline Monday) Smoking Status: Never smoker alcohol intake: never substance use type: does not use ROS ROS ED ROS Narrative Constitutional: Denies fever HEENT: Denies sore throat Neck: Denies neck pain Cardiovascular: Denies chest pain, syncope Respiratory: Denies shortness of breath GI: Endorses abdominal pain : Denies changes in urinary habits Musculoskeletal: Endorses back pain Neurologic: Denies numbness weakness or loss of sensation Skin denies rash EXAM Physical Exam Narrative Exam Narrative: Nursing triage notes reviewed, Vital signs reviewed Constitutional: please see mdm HENT: MMM Eyes: Pupils equal round and reactive to light, Extraocular muscles intact Neck: No stridor, no JVD, full neck ROM Lungs: Clear to auscultation, No wheezing or rales. No increased work of breathing, no conversational dyspnea, no accessory muscle use, no nasal flaring. No respiratory distress noted Heart: Regular rate and rhythm, No murmurs, No rubs and No gallops, 2+ distal pulses (radial, femoral, posterior tibial) in all extremities Abdomen: Soft, there is no tenderness, rigidity, rebound or guarding, no obvious peritoneal signs, no palpable pulsatile abdominal masses, no auscultated abdominal bruit : No CVAT Extremities: No edema Neuro: No focal neurological deficits, cranial nerves II through XII intact, 5/5 strength in all extremities. Intact sensation to light touch in all extremities, 2+ reflexes bilateral patella dens. Normal gait. No ataxia. Intact sensation L1-S1 dermatomal distributions. Intact 5/5 strength in hip flexion (T12-L3). Knee extension (L2-L4). Ankle dorsiflexion (L4-L5). Ankle plantar flexion (S1). Great toe extension (L5). 2+ patellar and Achilles DTRs. Skin: No rash or lesions noted Const Vital Signs: 09/02/22 10:04 09/02/22 15:40 09/02/22 16:02 Temperature 97.2 F L Temperature Source Temporal Pulse Rate 100 77 77 Respiratory Rate 16 16 16 Blood Pressure 187/122 H 165/85 H 177/89 H Blood Pressure Mean 143 Pulse Ox 100 96 98 Oxygen Delivery Method [facility] MDM MDM Narrative Medical decision making narrative: Chief Complaint: Abdominal pain, back External records reviewed: CT scan in July 2022 shows gallstones. Gallbladder ultrasound that time showed distended gallbladder, positive Dasilva sign but no pericholecystic fluid I considered the following differential diagnosis: Abdominal obstruction, perforation, gallbladder etiologies, pancreatitis, bony abnormality to the thoracic or lumbar spine I obtained a broad lab and imaging work-up to further elucidate etiology of patient's complaint. Labs without evidence of systemic inflammation, anemia, no evidence of an anion gap to suggest endorgan hypoperfusion, no significant electrolyte abnormalities. No evidence of hepatobiliary obstruction or pancrea titis. Imaging showed no evidence of acute gallbladder pathology or acute surgical pathology to abdomen pelvis. The patient's imaging of his thoracic and lumbar spine were concerning for multiple bone lesions concerning for metastatic disease. Patient was hemodynamically stable, he did not require hospitalization at this time. I did discuss the case with the scheduling center at her local [facility] who was able to schedule the patient a prompt outpatient oncology visit with Dr. Hernandez. Did give the patient pain medicine at home, work note and instructions to return if symptoms change or worsen in any way. Factors affecting care: Hypertension, history of gallstones Social determinants of health: Never smoker History obtained from others: None Shared decision making: I will have a discussion with the patient and or visitors regarding risk/benefits of further testing or admission. They will be made aware of of the risk/benefits inherent in this decision they will be given the opportunity to voice understanding. Consults: Fast pass [facility] Lab Data Attestation: I reviewed the patient's lab results. Lab results narrative: CBC without leukocytosis, severe anemia, no thrombocytopenia. BMP without evidence of significant electrolyte abnormalities, no anion gap, no acute kidney injury. LFTs show no evidence of hepatobiliary pathology. Lipase is wnl indicating no pancreatic inflammation. Labs: Laboratory Results - last 24 hr 09/02/22 09/02/22 09/02/22 11:10 11:10 15:18 WBC 5.1 RBC 4.81 Hgb 13.4 Hct 41.3 MCV 85.9 MCH 27.9 MCHC 32.4 RDW Std Deviation 56.0 H RDW Coeff of [place] 17.7 H Plt Count 239 MPV 10.2 Immature Gran % (Auto) 0.200 Neut % (Auto) 54.8 Lymph % (Auto) 30.8 [place] % (Auto) 10.1 H Eos % (Auto) 3.7 Baso % (Auto) 0.4 Absolute Neuts (auto) 2.8 Absolute Lymphs (auto) 1.56 Nucleated RBC % 0 Sodium 140 Potassium 3.8 Chloride 105 Carbon Dioxide 27.0 Anion Gap 8 BUN 22 H Creatinine 0.92 Estim Creat Clear Calc 100.04 Est GFR (MDRD) Af Amer 110 Est GFR (MDRD) Non-Af 91 BUN/Creatinine Ratio 23.8 H Glucose 151 H Calcium 9.2 Total Bilirubin 0.30 Direct Bilirubin 0.09 AST 15 ALT 34 Alkaline Phosphatase 36 L Total Protein 9.8 H Albumin 3.0 L Globulin 6.8 H Lipase 125 Urine Color Yellow Urine Clarity Clear Urine pH 5.0 Ur Specific [place] 1.015 Urine Protein 15 H Urine Glucose (UA) Normal Urine Ketones Negative Urine Occult Blood 10 H Urine Nitrite Negative Urine Bilirubin Negative Urine Urobilinogen 1 H Ur Leukocyte Esterase 25 H Urine RBC 0 SEEN Urine WBC 0-5 SEEN Ur Squamous Epith Cells 0-5 SEEN Urine Bacteria RARE Urine Mucus 0 SEEN Radiography Diagnostic Testing: Clinical Impression(s) from Imaging Studies Abdomen/Pelvis CT 09/02/22 10:54 IMPRESSION: Status post subtotal gastrectomy. Heterogeneous appearance of the collapsed T8 vertebrae. Correlation with a bone scan is recommended for further evaluation. Electronically Signed: Boom Villa MD at 14:44 EDT , Gallbladder Ultrasound 09/02/22 10:54 IMPRESSION: Hepatomegaly and fatty infiltration of the liver. No definite gallstones are seen at this time. Electronically Signed: Boom Villa MD at 12:20 EDT , Lumbar Spine CT 09/02/22 11:07 IMPRESSION: Diffuse posterior disc bulge at the L4-L5 level causing central canal stenosis and bilateral neural foraminal stenosis. Heterogeneous appearance of the posterior aspect of the L1 vertebrae on the left side. Lytic lesions involving the left iliac bone as well as the right as described. A bone scan is recommended. Electronically Signed: Boom Villa MD at 14:48 EDT , Thoracic Spine CT 09/02/22 11:07 IMPRESSION: Multiple bony lesions involving the axial and appendicular skeletons as described. A bone scan should be ruled out. Electronically Signed: Boom Villa MD at 14:50 EDT , Discharge Plan Triage Chief Complaint: Abd Pain ED Provider: Ankit Smith Dx/Rx/DC Orders Clinical Impression: Weight loss, abnormal, Back pain, Abdominal pain, Nausea, Lesion of bone of th oracic spine, Lesion of bone of lumbosacral spine Instructions: Abdominal Pain Prescriptions: New oxycodone 5 mg capsule 5 mg PO Q8H PRN (Reason: pain) 14 Days Qty: 42 0RF ondansetron 4 mg tablet,disintegrating 4 mg PO Q8H PRN PRN (Reason: Nausea) Qty: 10 0RF No Action tramadol 50 mg tablet 50 mg PO Q6H PRN (Reason: pain) Qty: 30 0RF metformin 500 mg Tablet 500 mg PO BID atorvastatin 10 mg Tablet 10 mg PO DAILY omeprazole 40 mg Capsule,Delayed Release(Dr/Ec) 40 mg PO DAILY amlodipine 10 mg tablet 10 mg PO DAILY lisinopril 40 mg Tablet 40 mg PO DAILY cinnamon bark [Cinnamon] 500 mg Capsule 1,200 mg PO DAILY Stand Alone Forms: ED Work / School Excuse Other Ambulatory Orders: Fast Pass: Oncology Referral [facility] (Routine) Facility: [facility] - Location: [facility] Ordered By: Dr. Ankit Smith Primary Care Provider: Rory Armijo Referrals: Rory Armijo MD [[facility]] - Activity Restrictions/Additional Instructions: Please take oral pain medication as needed. A referral to Oncology here at [facility] on 09/08/2022 at 11:00am Disposition Disposition: Home, Self Care Discharge Date/Time: 09/02/22 16:03
--- NOTE | 2022-09-02 10:54 | CT_ITS ---
STUDY: CT ABDOMEN AND PELVIS WITH CONTRAST REASON FOR EXAM: Male, 51 years old. Abdominal pain -- IV PO Contrast. Prior gastric bypass surgery and umbilical hernia repair. RADIATION DOSAGE (If Supplied By Facility): CTDIvol = ( 21.1 ) mGy, DLP = ( 1949.04 ) mGycm TECHNIQUE: Transaxial images were obtained from the dome of the diaphragm to the symphysis pubis with oral contrast. Oral and amp; IV Gastrografin and amp; 100mL Isovue-300 was administered. Sagittal and coronal images were reconstructed. Individualized dose optimization techniques were used for this CT. COMPARISON: Comparison is made with prior examination dated August 05, 2022. FINDINGS: The visualized lung bases are unremarkable. Coronary artery calcification. There is decreased attenuation of the liver consistent with steatosis. There are multiple small gallstones in the region of the neck of the gallbladder.. Normal spleen. Normal pancreas. Normal bilateral adrenal glands. Normal right kidney. Normal left kidney. The patient is status post subtotal gastrectomy and gastric bypass surgery. Normal small intestine. Normal colon. The appendix is visualized and appears normal. Normal abdominal aorta. Normal inferior vena cava. Normal retroperitoneum. Normal urinary bladder. Normal abdominal wall. Almost complete collapse of the T8 vertebrae. The vertebral body as a heterogeneous appearance. Correlation with a bone scan is recommended. CT/Abdomen/Pelvis WITH Contrast IMPRESSION: Status post subtotal gastrectomy. Heterogeneous appearance of the collapsed T8 vertebrae. Correlation with a bone scan is recommended for further evaluation. Electronically Signed: Boom Villa MD at 14:44 EDT ,
--- NOTE | 2022-09-02 10:54 | US_ITS ---
STUDY: ABDOMINAL ULTRASOUND - RIGHT UPPER QUADRANT REASON FOR VISIT: Male, 51 years old Right upper quadrant pain, history of gallstones TECHNIQUE: Ultrasound evaluation of the right upper quadrant was performed with real-time and static interiano-scale imaging. TECHNICAL QUALITY: Limited. Examination limited due to a combination of factors including obesity and bowel gas. COMPARISON: Comparison is made with prior study. Thyroid 29/09/2022. FINDINGS: Liver: The liver is enlarged and measures 18.9 cm. There is increased echogenicity consistent with fatty infiltration. The bile ducts are within normal limits. There is hepatic color flow. The direction of portal flow is hepatopetal. There is no demonstrated mass lesion. Gallbladder: Normal distended gallbladder. The gallbladder wall measures 2.3 mm. There is a negative sonographic Dasilva''s sign. There is no pericholecystic fluid. There are no gallstones. Common Bile Duct (C.B.D.): The common bile duct measures 6.9 mm. Pancreas: There is nonvisualization of the pancreas due to overlying bowel gas. Right Kidney: Normal size of the right kidney. The right kidney measures 11.6 cm x 5.5 cm x 4.9 cm. Normal renal cortex. The right cortex measures 1.7 cm. There is no demonstrated renal mass or cyst. There is no right hydronephrosis. US/Gallbladder IMPRESSION: Hepatomegaly and fatty infiltration of the liver. No definite gallstones are seen at this time. Electronically Signed: Boom Villa MD at 12:20 EDT ,
--- NOTE | 2022-09-02 11:07 | CT_ITS ---
STUDY: CT LUMBAR SPINE WITHOUT CONTRAST REASON FOR EXAM: Male, 51 years old. Chronic back pain. RADIATION DOSAGE (If Supplied By Facility): CTDIvol = ( 59.72 ) mGy, DLP = ( 1765.16 ) mGycm TECHNIQUE: The patient was scanned in a multi detector CT scanner. High resolution transaxial imaging was performed. Images were obtained from L1 to S1 level. Sagittal and coronal images were reconstructed. Individualized dose optimization techniques were used for this CT. COMPARISON: None FINDINGS: Normal lumbar lordosis. There is no substantial scoliosis. Heterogeneous appearance of the posterior aspect of the L1 vertebrae on the left side. Correlation with the bone scan is recommended. L1-2: Normal endplates. Normal disc height and morphology. Normal bilateral facet joints. Normal central canal and bilateral lateral recesses. Normal bilateral intervertebral neural foramina. L2-3: Normal endplates. Normal disc height and morphology. Normal bilateral facet joints. Normal central canal and bilateral lateral recesses. Normal bilateral intervertebral neural foramina. L3-4: Normal endplates. Normal disc height and morphology. Normal bilateral facet joints. Normal central canal and bilateral lateral recesses. Normal bilateral intervertebral neural foramina. L4-5: Diffuse posterior disc bulge. This causes a mild degree of central canal stenosis as well as a moderate degree of bilateral neural foraminal stenosis. L5-S1: Normal endplates. Normal disc height and morphology. Normal bilateral facet joints. Normal central canal and bilateral lateral recesses. Normal bilateral intervertebral neural foramina. There is evidence of a 1.1 cm x 2 cm lytic lesion in the left iliac bone. This also evidence of a 2.2 cm x 2.2 cm lytic lesion in the posterior aspect of the left iliac bone. There is a 1 cm x 1.2 cm lytic lesion in the midportion of the right iliac bone. CT/Spine Lumbar without Contrast IMPRESSION: Diffuse posterior disc bulge at the L4-L5 level causing central canal stenosis and bilateral neural foraminal stenosis. Heterogeneous appearance of the posterior aspect of the L1 vertebrae on the left side. Lytic lesions involving the left iliac bone as well as the right as described. A bone scan is recommended. Electronically Signed: Boom Villa MD at 14:48 EDT ,
--- NOTE | 2022-09-02 11:07 | CT_ITS ---
STUDY: CT THORACIC SPINE WITHOUT CONTRAST REASON FOR EXAM: Male, 51 years old. Back pain RADIATION DOSAGE (If Supplied By Facility): CTDIvol = ( 52.14 ) mGy, DLP = ( 1971.05 ) mGycm TECHNIQUE: The patient was scanned in a multi detector CT scanner. High resolution imaging was performed. Images were obtained from T1 to T12 vertebral level. Sagittal and coronal images were reconstructed. Individualized dose optimization techniques were used for this CT. COMPARISON: None. FINDINGS: I suspect a 2.4 cm x 1.8 cm lytic lesion in the proximal left humerus. Scattered lytic lesions seen in the posterior aspects of both multiple ribs. Normal kyphosis of the thoracic spine. There is no substantial scoliosis. There is complete collapse of the T8 vertebrae with a heterogeneous soft tissue mass in the spinal stenosis. Heterogeneous appearance of multiple thoracic vertebrae. Metastatic disease should be ruled out. Correlation with a bone scan is recommended. The soft tissue structures are unremarkable. CT/Spine Thoracic without Contras IMPRESSION: Multiple bony lesions involving the axial and appendicular skeletons as described. A bone scan should be ruled out. Electronically Signed: Boom Villa MD at 14:50 EDT ,
[2022-09-02] MEDS: Morphine 4 MG/ML Syringe IV (11:15)
[2022-09-02] MEDS: 0.9% Normal Saline 1,000 ML 1000 ML IV (11:15)
[2022-09-02 11:21] LABS: Absolute Lymphocyte Count 1.56 X10^3/uL (0.83-4.51); Absolute Neutrophil Count 2.8 X10^3/uL (2.0-7.7); Basophil# 0.02 X10^3/uL; Basophil% 0.4 % (0-1); Eosinophil# 0.19 X10^3/uL; Eosinophils% 3.7 % (0-5); Hematocrit 41.3 % (40-54); Hemoglobin 13.4 g/dL (13.0-16.5); Lymphocyte # 1.56 X10^3/ul (0.83-4.51); Lymphocyte % 30.8 % (19-41); Mean Corp Hgb Conc 32.4 g/dL (32-36); Mean Corpuscular Hgb 27.9 pg (27.0-32.0); Mean Corpuscular Volume 85.9 fL (80-94); Mean Platelet Vol. 10.2 fl (6.2-12.0); Monocyte# 0.51 X10^3/uL; Monocyte% 10.1 % (0-10); NRBC Flagged by Analyzer 0 % (0-5); Neutrophil # 2.78 X10^3/uL (2.7-7.7); Neutrophil % 54.8 % (47-70); Platelet Count 239 K/mm3 (150-450); RBC Distribution Width CV 17.7 % (11.6-14.6); Red Blood Count 4.81 M/mm3 (4.6-6.2); White Blood Count 5.1 K/mm3 (4.4-11.0)
[2022-09-02 11:39] LABS: AST(SGOT) 15 U/L (15-37); Alanine Aminotransfer ALT/SGPT 34 U/L (16-61); Alkaline Phosphatase 36 U/L (45-117); Anion Gap 8 (5-15); BUN 22 mg/dL (7-18); BUN/Creat Ratio 23.8 RATIO (10-20); Bilirubin, Direct 0.09 mg/dL (0.00-0.30); Calcium,Total 9.2 mg/dL (8.5-10.1); Chloride 105 mmol/L (98-107); Creatinine, Serum 0.92 mg/dL (0.70-1.30); EST Glomerular Filtration Rate 91 mL/min (>60); Est Glom Filt Rate - Afr Amer 110 mL/min (>60); Estimated Creatinine Clearance 100.04 ml/min; Globulin 6.8 g/dL (2.2-4.2); Glucose 151 mg/dL (74-106); Lipase 125 U/L (73-393); Potassium 3.8 mmol/L (3.5-5.1); Protein, Total 9.8 g/dL (6.4-8.2); Sodium Level 140 mmol/L (136-145)
[2022-09-02 15:27] LABS: Mucous, Urine 0 SEEN /hpf (<or=2+); Red Blood Cells-Urine 0 SEEN /hpf (0-5)
[2022-09-02 15:40] VITALS: BP 165/85; PULSE 77; RESP 16; O2SAT 96
[2022-09-02 15:41] LABS: Glucose, Dipstick Normal (Normal); Ketone-Dipstick Negative (Negative); Leukocyte Esterase-Dipstick 25 /ul (Negative); Nitrite-Dipstick Negative (Negative); Occult Blood-Urine 10 /ul (Negative); Protein-Dipstick 15 mg/dl (Negative); Specific Gravity, Urine 1.015 (1.002-1.030); Urine Bilirubin Dipstick Negative (Negative); Urine Urobilinogen 1 mg/dl (Normal)
[2022-09-02 15:42] LABS: Color, Urine Yellow (Yellow); Urine Clarity Clear (Clear)
[2022-09-02 15:49] LABS: Squamous Epithelial Cells - UA 0-5 SEEN /hpf (0-5); White Blood Cells 0-5 SEEN /hpf (0-5)
[2022-09-02 15:50] LABS: Bacteria RARE /hpf (None Seen)
[2022-09-02 16:02] VITALS: BP 177/89; PULSE 77; RESP 16; O2SAT 98
== END 2022-09-02 16:03 | disposition home or self-care (01) ==
PROVIDERS: Emergency Provider Emergency Medicine; PCP Internal Medicine; Visit Provider Emergency Medicine
DX: R10.9 Unspecified abdominal pain (principal); S34.119A Complete lesion of unspecified level of lumbar spinal cord, initial encounter; E11.9 Type 2 diabetes mellitus without complications; M54.9 Dorsalgia, unspecified; I10 Essential (primary) hypertension; E78.00 Pure hypercholesterolemia, unspecified; R63.4 Abnormal weight loss; R11.0 Nausea; M89.8X8 Other specified disorders of bone, other site
CPT/HCPCS: 72128; 72131; 74177; 76705; 80048; 80076; 81001; 83690; 85025; 96361; 96374; 99283; J7030; Q9967; A4216

== ENCOUNTER → 2022-09-12 | Outpatient (CLI) | payer BC, SELFPAY ==
--- NOTE | 2022-09-12 09:17 | RAD_ITS ---
INDICATION: GAMMOPATHY AND BONE LESIONS EXAMINATION/TECHNIQUE: X-RAY - XR Bone Survey Complete 23 VIEWS COMPARISON: CT thoracic spine 09/02/2022 FINDINGS: SOFT TISSUES: No soft tissue swelling or gas. No radiopaque foreign body. BONES/JOINTS: No acute fracture. Well-defined lytic lesion distal left clavicle. Vertebral plana T8. Joint spaces anatomically aligned. RAD/Bone Survey Comp(Axial&Append) IMPRESSION: Lytic lesion distal left clavicle and vertebral plana at T8. Findings are consistent with multiple myeloma. Electronically Signed: Heraclio Katz MD at 16:45 EDT ,
== END | disposition home or self-care (01) ==
LOC: RAD 09:15
PROVIDERS: PCP Internal Medicine; Visit Provider Internal Medicine Hematology & Oncology
DX: M89.9 Disorder of bone, unspecified (principal); D47.2 Monoclonal gammopathy
CPT/HCPCS: 77075

== ENCOUNTER → 2022-09-15 | Outpatient (CLI) | payer BC, SELFPAY ==
[2022-09-15] VITALS (9 sets, daily range): BP systolic 135–176; BP diastolic 86–110; PULSE 74–89; RESP 12–20; TEMP 36.9; O2SAT 93–97; BMI 46.4
--- NOTE | 2022-09-15 | IMM_PTH ---
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 Tim Wisdom MD : 1970 BED: DIS: 09/15/2022 SPEC #: [id number] RECD: 09/16/22 11:47 STATUS: MARY RESukumar #: [id number] SUSANNAH: 09/15/22 00:[address]: Tim Wisdom DEPT: IMMUNOHISTOCHEMISTRY RECD BY: Keiko Styles ENTERED: 09/16/22 11:48 SP TYPE: IMMUNO OTHR DR: Dr. Karla Washington MD Tissues: B - Bone marrow of iliac crest Procedures: CD138 (add) KAPPA (add) LAMBDA (add) CD45 (initial) PHYSICIAN & INSTITUTION [place] [id number] SPECIMEN INFORMATION: Tissue Source: B ? Bone marrow clot Clinical Info: Bone lesions Specimen Number: [id number] CPT code: 61229, 39520 x3 METHODOLOGY: Deparaffinized sections of prefer/formalin-fixed tissue or PAP/DQ stained slides are incubated with monoclonal/polyclonal antibodies/oligonucleotide probes. Localization is made via biotin free immunoperoxidase method. Appropriate controls are performed and reacted as expected. Results on target cell population are indicated in the following table: RESULTS: ANTIBODY / CLONE RESULT Block B CD45 (RP2/18) positive CD138 (B-A38) positive [place] (polyclonal) positive Lambda (polyclonal) negative These tests were developed and their performance characteristics determined by [facility]. They may not have been cleared or approved by the U.S. Food and Drug Administration. The FDA has determined that such clearance or approval is not necessary. The above immunohistochemical/dualISH markers are ordered and reviewed by the Pathologist. INTERPRETATION: B. Bone marrow clot: Mild increase of plasma cells noted with kappa monoclonality. See comment. SJ:lance 09/19/2022 Comment: Mild increase of small lymphocytes is also noted. Case has been reviewed in consultation with Dr. Hinkle who concurs with the above diagnosis. IDC:AM
--- NOTE | 2022-09-15 07:39 | CT_ITS ---
PROCEDURE: CT GUIDED bone marrow biopsy of the posterior right iliac bone. DATE: September 15, 2022. INDICATION: Male, 51 years old. Elevated IgG. PHYSICIAN: Boom Villa M.D. RADIATION DOSAGE (If Supplied By Facility): CTDIvol = ( 22 ) mGy, DLP = ( 972.95 ) mGycm PROCEDURE: The risks, benefits, and alternatives to the procedure were explained to the patient. The specific risk of hemorrhage requiring further treatment or intervention was detailed and accepted. Follow-up instructions were discussed with the patient as well. Written informed consent was obtained. The patient was brought into the CT suite and placed in the prone position. . An appropriate entry site was identified. The overlying skin was prepped and draped in the usual sterile fashion. 1% lidocaine was administered subcutaneously for local anesthesia. Conscious sedation was performed. The patient received 2 mg of Versed and 50 mcg of fentanyl intravenously. Conscious sedation was started at 9:01 AM and terminated at 920 the patient was independently monitored by the department nurse. Under CT guidance, a bone marrow biopsy and bone marrow aspirate of the posterior right iliac bone were performed utilizing 11-gauge bone marrow biopsy needle system. The specimens were then placed in the appropriate fluid and transported to the laboratory for analysis. Hemostasis was obtained. The patient tolerated the procedure well without immediate complications. CT/Biopsy/Inj or Needle Placement IMPRESSION: Successful CT guided bone marrow biopsy and bone marrow aspirate of the posterior right iliac bone, as described above. The conscious sedation protocol was followed. Electronically Signed: Boom Villa MD at 9:57 EDT ,
[2022-09-15 07:45] LABS: Absolute Lymphocyte Count 2.17 X10^3/uL (0.83-4.51); Absolute Neutrophil Count 2.7 X10^3/uL (2.0-7.7); Basophil# 0.02 X10^3/uL; Basophil% 0.3 % (0-1); Eosinophil# 0.29 X10^3/uL; Hematocrit 42.8 % (40-54); Hemoglobin 13.6 g/dL (13.0-16.5); Lymphocyte # 2.17 X10^3/ul (0.83-4.51); Lymphocyte % 37.7 % (19-41); Mean Corp Hgb Conc 31.8 g/dL (32-36); Mean Corpuscular Hgb 28.5 pg (27.0-32.0); Mean Corpuscular Volume 89.5 fL (80-94); Mean Platelet Vol. 10.1 fl (6.2-12.0); Monocyte# 0.54 X10^3/uL; Monocyte% 9.4 % (0-10); NRBC Flagged by Analyzer 0 % (0-5); Neutrophil # 2.72 X10^3/uL (2.7-7.7); Neutrophil % 47.3 % (47-70); Platelet Count 275 K/mm3 (150-450); RBC Distribution Width CV 18.4 % (11.6-14.6); RBC Distribution Width SD 59.6 fl (35.1-43.9); Red Blood Count 4.78 M/mm3 (4.6-6.2); White Blood Count 5.8 K/mm3 (4.4-11.0)
[2022-09-15 08:17] LABS: Partial Thromboplast Time 24.6 Seconds (24.1-36.2); Prothrombin Time (Protime)PT. 13.1 SECONDS (11.7-14.9)
--- NOTE | 2022-09-15 09:00 | BMB_PTH ---
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 Tim Wisdom MD : 1970 BED: DIS: 09/15/2022 SPEC #: [id number] RECD: 09/15/22 10:00 STATUS: MARY CHRISTIANO #: [id number] SUSANNAH: 09/15/22 09:[address]: Tim Wisdom DEPT: BONE MARROW RECD BY: Gwendolyn Ng ENTERED: 09/15/22 10:21 SP TYPE: BMB SURJIT DR: Dr. Karla Washington MD Tissues: A - Bone marrow, NOS B - Bone marrow, NOS C - Bone marrow, NOS Procedures: Decalcification bone/plaque Bone Marrow Aspiration Bone Marrow Core Biopsy Iron Stain Bone Marrow HEADER OPERATION: Bone marrow biopsy and aspiration PRE-OP DIAGNOSIS: Bone lesions TISSUE SUBMITTED: A - Core, B - Clot, C - Smears, and send outs (flow, cytogenetics and MM FISH) BONE MARROW DIAGNOSIS Bone marrow core, clot and aspirate smears: Normocellular marrow with mild plasmacytosis with kappa monoclonality. See comment. SJ:lance 09/19/2022 COMMENT B. Immunohistochemistry ([id number]) supports the above diagnosis. Bone marrow core entirely consists of peripheral blood clots and hematopoietic elements are not seen. Aspirate smears show hemodilution. Rare erythroid, myeloid and plasma cells are noted. Bone marrow aspirate clot is limited in evaluation with rare marrow particulates. FISH panel for myeloma and Cytogenetic studies are pending. Correlation with clinical, radiologic findings and appropriate follow up are necessary. This case was reviewed and diagnosis discussed with Dr. Wisdom on 09/28/2022. Case has been reviewed in consultation with Dr. Hinkle who concurs with the above diagnosis. IDC:AM BONE MARROW STUDY Slides are reviewed. CBC DATE: 09/15/2022 WBC 5.8; RBC 4.78; HGB 13.6; HCT 42.8; MCV 89.5; RDW 18.4; PLTS 275,000 SEGS 47.3%; LYMPHS 37.3%; MONOS 9.4%; EOS 5.0%; BASOS 0.3% PERIPHERAL SMEAR: Submitted. RBC: Normocytic and normochromic. WBC: Unremarkable. The WBC count is compatible to as reported above. PLTS: Adequate. BONE MARROW ASPIRATE DIFFERENTIAL: Not performed. ASPIRATE FINDINGS: Site: Not specified Aspicular, Acellular Comment: All submitted smears are examined. The smears show marked hemodilution. Rare erythroid, myeloid cells and plasma cells are noted. CORE BIOPSY FINDINGS: Site: Not specified Comment: The specimen entirely consists of blood clot. Hematopoietic cells are not identified. ASPIRATE CLOT FINDINGS: Site: Not specified Marrow particles: Rare Cellularity: 50% M/E ratio: Within normal limits. Megakaryocytes: Present and adequate in number. Granulomas: Absent. Lymphoid aggregates: Absent. Atypical infiltrates: Present Comment: Mild increase of plasma cells are noted. Immunohistochemistry shows mild increase of plasma cells with kappa monoclonality. Plasma cells comprise about 5% of total nucleated cell population. Mild increase of interstitial small lymphocytes is also noted. The specimen is limited in evaluation due to small size of marrow particle. SPECIAL STAINS WITH MATCHED CONTROLS: Iron: Absent Reticulin: No significant increase of reticulin fibers is noted. PAS: Highlights myeloid cells and megakaryocytes. BONE MARROW GROSS A - Received is a container labeled with the patient's name and designated bone marrow. The specimen consists of a scant amount of soft tissue. The specimen is totally submitted for cell block preparation. B - Received in two syringes labeled with the patient's name and designated bone marrow is a specimen that consists of approximately 8 ml of reddish-nichols fluid that on filtration yields multiple irregular fragments of reddish-nichols tissue measuring in aggregate 2.5 x 2.0 x 0.2 cm. The specimen is totally submitted in one cassette. C - Also received are 15 unstained and 1 peripheral stained slides. The unstained slides are submitted for appropriate staining. Also received is one green top tube which is sent to our reference lab for flow, cytogenetics and MM FISH. / AM:lance 09/15/2022 TC: CPT: 45750, 90578, 49280 x2, 90315 x3, 71229 ADDENDUM ADDENDUM ADDENDUM ADDENDUM ADDENDUM ADDENDUM ADDENDUM ADDENDUM 09/28/2022 09:54 ADDENDUM 09/28/2022 09:54 ADDENDUM 09/28/2022 09:54 ADDENDUM 09/28/2022 09:54 ADDENDUM 09/28/2022 09:54 [facility] CYTOGEN[facility]IC RESULT: 46,XY[20] INTERPRETATION: Normal male karyotype was observed in twenty metaphases analyzed. Please see complete report in e-chart or EMR
[2022-09-15] MEDS: fentaNYL 100 MCG/2 ML Ampul IV ×2 (09:01→09:17)
[2022-09-15] MEDS: Midazolam 2 MG/2 ML Syringe IV ×2 (09:01→09:17)
[2022-09-15] MEDS: Lidocaine 2% (20 ml mdv) 20 ML Vial INFILT (09:12)
[2022-09-28 09:56] LABS: Miscellaneous Lab Procedure 2 SEE PATH REPORT
== END | disposition home or self-care (01) ==
PROVIDERS: PCP Internal Medicine; Referring Provider Internal Medicine Hematology & Oncology; Visit Provider Internal Medicine Hematology & Oncology
DX: M89.9 Disorder of bone, unspecified (principal); D47.2 Monoclonal gammopathy; Z76.89 Persons encountering health services in other specified circumstances
CPT/HCPCS: 38222; 36415; 77012; 85025; 85610; 85730; 88305; 88311; 88313; 88341; 88342; 99156; J7050; A4216

== ENCOUNTER → 2022-10-04 | Outpatient (CLI) | payer BC, SELFPAY ==
[2022-10-04] VITALS (9 sets, daily range): BP systolic 106–178; BP diastolic 83–113; PULSE 67–94; RESP 12–20; TEMP 36.9; O2SAT 92–98; BMI 44.3
--- NOTE | 2022-10-04 | BMB_PTH ---
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 Tim Wisdom MD : 1970 BED: DIS: 10/04/2022 SPEC #: [id number] RECD: 10/04/22 10:06 STATUS: MARY CHRISTIANO #: [id number] SUSANNAH: 10/04/22 00:[address]: Tim Wisdom DEPT: BONE MARROW RECD BY: Guevara Villalba ENTERED: 10/04/22 10:07 SP TYPE: BMB SURJIT DR: Dr. Karla Washington MD Tissues: A - Bone marrow, NOS B - Bone marrow, NOS C - Bone marrow, NOS Procedures: Bone Marrow Aspiration Bone Marrow Core Biopsy Iron Stain Bone Marrow HEADER OPERATION: Bone marrow biopsy and aspiration PRE-OP DIAGNOSIS: IgG-K monoclonal protein, lytic lesions TISSUE SUBMITTED: A - Core, B - Clot, C - Smears, and send outs (flow and MM FISH) BONE MARROW DIAGNOSIS Bone marrow biopsy, clot and aspiration: IgG kappa restricted plasma cell neoplasm. Markedly hypocellular and hemodilute specimen. See comment. AM:lance 10/07/2022 COMMENT Plasma cell population is approximately 4% in the aspirate. Flow cytometry analysis reveal an IgG kappa-restricted plasma cell population. The abnormal plasma cells are medium sized. The complete flow report is viewable in EMR. Reference is made to the patient?s previous bone marrow biopsy on 09/19/22 ([id number]) with similar findings. Case has been reviewed in consultation with Dr. Torres who concurs with the above diagnosis. IDC:SJ BONE MARROW STUDY Slides are reviewed. CBC DATE: 10/04/2022 WBC 5.7; RBC 4.66; HGB 13.6; HCT 42.6; MCV 91.4; RDW 18.1; PLTS 278,000 SEGS 41.6%; LYMPHS 42.8%; MONOS 8.2%; EOS 6.8%; BASOS 0.4% PERIPHERAL SMEAR: Submitted. RBC: Normocytic, normochromic WBC: Occasional reactive lymphocytes noted. BONE MARROW ASPIRATE DIFFERENTIAL: Rare maturing bone marrow cells. Markedly hemodilute with plasma cells at approximately 4%. ASPIRATE FINDINGS: Site: Not specified Aspicular Hypocellular Markedly hemodilute. Rare maturing bone marrow cells. Plasma cells approximately 4%. CORE BIOPSY FINDINGS: Site: Not specified Cellularity %: Not applicable M/E ratio: Not applicable Comment: No bone present. Only clotted blood with rare maturing bone marrow cells. ASPIRATE CLOT FINDINGS: Site: Not specified Cellularity %: Not applicable M/E ratio: Not applicable Comment: Rare maturing bone marrow cells. Plasma cells comprise 3-4%. SPECIAL STAINS (with matched controls): Iron: Aspicular Reticulin: Within normal limits. PAS: Highlights myeloid elements and megakaryocytes. BONE MARROW GROSS A - Received is a container labeled with the patient's name and designated bone marrow. The specimen consists of a scant amount of soft tissue. The specimen is totally submitted for cell block preparation. B - Received labeled with the patient's name and designated bone marrow is a specimen that consists of approximately 7 ml of bloody fluid that on filtration yields multiple irregular fragments of red-nichols soft tissue measuring in aggregate 2.3 x 2.0 x 0.2 cm. The specimen is totally submitted in one cassette. C - Also received are 15 unstained and 1 peripheral stained slides. The unstained slides are submitted for appropriate staining. Also received are two green top tubes which are sent to our reference lab for flow and MM FISH. / AM:lance 10/04/2022 TC:? CPT: 99563, 21745, 16093 x2, 07579 x3 ADDENDUM ADDENDUM ADDENDUM ADDENDUM ADDENDUM ADDENDUM ADDENDUM ADDENDUM ADDENDUM ADDENDUM ADDENDUM ADDENDUM ADDENDUM ADDENDUM 11/14/2022 10:36 ADDENDUM 11/14/2022 10:36 ADDENDUM 11/14/2022 10:36 ADDENDUM 11/14/2022 10:36 ADDENDUM 11/14/2022 10:36 FLUORESCENCE IN-SITU HYBRIDIZATION (FISH) FROM [facility] MYELOMA PROGNOSIS INTERPRETATION: 1. No evidence of IGH-MAF [translocation t(14;16)] gene rearrangement. 2. No evidence of RB1 monosomy (13q14 deletion). 3. No evidence of CCND1-IGH [translocation t(11;14)] gene rearrangement, and no evidence for trisomy 11 or gain of 11q. 4. No evidence of p53 (17p13) deletion or amplification. 5. No evidence of FGFR3-IGH [translocation t(4;14)] gene rearrangement. 6. Negative for 1q21/CKS1B gain. Please see complete report in e-chart or EMR
--- NOTE | 2022-10-04 07:38 | CT_ITS ---
PROCEDURE: CT GUIDED bone marrow biopsy and bone marrow aspiration of the posterior right iliac bone. DATE: October 04, 2022. INDICATION: Male, 51 years old. Multiple myeloma. PHYSICIAN: Boom Villa M.D. RADIATION DOSAGE (If Supplied By Facility): CTDIvol = ( 21 ) mGy, DLP = ( 780.64 ) mGycm. Individualized dose optimization techniques were utilized. PROCEDURE: The risks, benefits, and alternatives to the procedure were explained to the patient. The specific risk of hemorrhage requiring further treatment or intervention was detailed and accepted. Follow-up instructions were discussed with the patient as well. Written informed consent was obtained. The patient was brought into the CT suite and placed in the prone position.. . An appropriate entry site was identified. The overlying skin was prepped and draped in the usual sterile fashion. 1% lidocaine was administered subcutaneously for local anesthesia. Conscious sedation was performed. The patient received 3 mg of Versed and 75 mcg of fentanyl intravenously. Conscious sedation was started at 8:55 AM and terminated at 9:15. The patient was independently monitored by the department nurse. Under CT guidance, a bone marrow biopsy and bone marrow aspirate were performed of the posterior right iliac bone. The specimens were then placed in the appropriate fluid and transported to the laboratory for analysis. Hemostasis was obtained. The patient tolerated the procedure well without immediate complications. CT/Biopsy/Inj or Needle Placement IMPRESSION: Successful CT guided bone marrow biopsy and aspiration of the posterior aspect of the right iliac bone, as described above. The conscious sedation protocol was followed. Electronically Signed: Boom Villa MD at 9:52 EDT ,
[2022-10-04 07:50] LABS: Absolute Lymphocyte Count 2.44 X10^3/uL (0.83-4.51); Absolute Neutrophil Count 2.4 X10^3/uL (2.0-7.7); Basophil# 0.02 X10^3/uL; Basophil% 0.4 % (0-1); Eosinophil# 0.39 X10^3/uL; Eosinophils% 6.8 % (0-5); Hematocrit 42.6 % (40-54); Hemoglobin 13.6 g/dL (13.0-16.5); Lymphocyte # 2.44 X10^3/ul (0.83-4.51); Lymphocyte % 42.8 % (19-41); Mean Corp Hgb Conc 31.9 g/dL (32-36); Mean Corpuscular Hgb 29.2 pg (27.0-32.0); Mean Corpuscular Volume 91.4 fL (80-94); Mean Platelet Vol. 9.8 fl (6.2-12.0); Monocyte# 0.47 X10^3/uL; Monocyte% 8.2 % (0-10); NRBC Flagged by Analyzer 0 % (0-5); Neutrophil # 2.37 X10^3/uL (2.7-7.7); Neutrophil % 41.6 % (47-70); Platelet Count 278 K/mm3 (150-450); RBC Distribution Width CV 18.1 % (11.6-14.6); RBC Distribution Width SD 60.7 fl (35.1-43.9); Red Blood Count 4.66 M/mm3 (4.6-6.2); White Blood Count 5.7 K/mm3 (4.4-11.0)
[2022-10-04 08:02] LABS: Prothrombin Time (Protime)PT. 12.7 SECONDS (11.7-14.9)
[2022-10-04 08:03] LABS: Partial Thromboplast Time 24.4 Seconds (24.1-36.2)
[2022-10-04] MEDS: fentaNYL 100 MCG/2 ML Ampul IV ×2 (08:55→09:14)
[2022-10-04] MEDS: Midazolam 2 MG/2 ML Syringe IV ×2 (08:55→09:14)
[2022-10-04] MEDS: Lidocaine 2% (20 ml mdv) 20 ML Vial INFILT (09:07)
== END | disposition home or self-care (01) ==
PROVIDERS: PCP Internal Medicine; Referring Provider Internal Medicine Hematology & Oncology; Visit Provider Internal Medicine Hematology & Oncology
DX: C90.00 Multiple myeloma not having achieved remission (principal); E66.01 Morbid (severe) obesity due to excess calories; E11.9 Type 2 diabetes mellitus without complications; Z01.812 Encounter for preprocedural laboratory examination; I10 Essential (primary) hypertension; E78.5 Hyperlipidemia, unspecified; Z98.84 Bariatric surgery status; D47.2 Monoclonal gammopathy; M89.9 Disorder of bone, unspecified; M54.9 Dorsalgia, unspecified; G47.33 Obstructive sleep apnea (adult) (pediatric); Z99.89 Dependence on other enabling machines and devices; R10.9 Unspecified abdominal pain
CPT/HCPCS: 38222; 36415; 77012; 85025; 85610; 85730; 88305; 88311; 88313; 99156; J7050; A4216

== ENCOUNTER → 2022-10-13 | Outpatient (CLI) | payer BC, SELFPAY ==
[2022-10-13 11:27] LABS: Amphetamine Urine VISTA NEGATIVE (<1000 ng/mL); Barbiturate Urine VISTA NEGATIVE (< 200 ng/mL); Benzodiazepine Urine VISTA NEGATIVE (< 200 ng/mL); Cocaine Urine VISTA NEGATIVE (< 300 ng/mL); Ecstacy Urine VISTA NEGATIVE (< 500 ng/mL); Methadone Urine VISTA NEGATIVE (< 300 ng/mL); PCP Urine VISTA NEGATIVE (< 25 ng/mL); THC Urine VISTA NEGATIVE (< 50 ng/mL); Vista UDS pH Range 5
== END | disposition home or self-care (01) ==
LOC: LAB 10:55
PROVIDERS: PCP Internal Medicine; Referring Provider Anesthesiology Pain Medicine; Visit Provider Anesthesiology Pain Medicine
DX: F11.20 Opioid dependence, uncomplicated (principal)
CPT/HCPCS: 80307

== ENCOUNTER 2022-11-16 13:53 | Emergency (ER) | payer BC, SELFPAY ==
[2022-11-16 13:56] VITALS: BP 164/115; PULSE 109; RESP 18; TEMP 35.9; O2SAT 100; BMI 44.9
--- NOTE | 2022-11-16 14:23 | CT_ITS ---
STUDY: CT ABDOMEN AND PELVIS WITHOUT CONTRAST REASON FOR EXAM: Male, 51 years old. Right flank pain. History multiple myeloma. RADIATION DOSAGE (If Supplied By Facility): CTDIvol = ( 24.18 ) mGy, DLP = ( 1353.14 ) mGycm TECHNIQUE: Transaxial images were obtained from the dome of the diaphragm to the symphysis pubis without oral contrast, and without intravenous contrast. Sagittal and coronal images were reconstructed. Individualized dose optimization techniques were used for this CT. COMPARISON: Comparison is made with prior study September 02, 2022 and August 05, 2022. FINDINGS: Mild degree of right basilar atelectasis. Coronary artery calcification. Normal liver. Mildly distended gallbladder lumen. Tiny gallstones at the base of the gallbladder lumen. Normal spleen. There is diffuse atrophy of the pancreas. Normal bilateral adrenal glands. Normal right kidney. Normal left kidney. Surgical clips are seen in the stomach suggestive of a prior gastric bypass surgery. Normal small intestine. Normal colon. The appendix is visualized and appears normal. Normal abdominal aorta. Normal inferior vena cava. Normal retroperitoneum. Normal urinary bladder. Stable calcification in the right vas deferens. Normal abdominal wall. Almost collapse of the T8 vertebrae. Paravertebral soft tissue mass surrounding the T8 vertebrae. Several lucencies are seen in the iliac bones bilaterally. Patient has a known multiple myeloma. Multiple bone findings as described. Slightly distended gallbladder lumen with gallstones. Fatty infiltration of the liver. Electronically Signed: Boom Villa MD at 15:16 EDT , CT/Abdomen/Pelvis without Cont IMPRESSION: undefined
--- NOTE | 2022-11-16 14:24 | ED.VIS.BACK ---
HPI History of Present Illness Chief Complaint: Back Detail of Chief Complaint: Back pain Informant: patient Narrative Narrative: Patient presents the emergency department with complaint of severe back pain. Patient states that he is in the process of being worked up for multiple myeloma. Patient has a collapsed T8 vertebrae which back surgeon told him could not be fixed or repaired. He has been seen by oncology and they have attempted bone biopsy twice and have not gotten good biopsy results therefore he was just at [facility] for sedation and biopsy of his pelvic bone. Patient states he started having pain afterwards in his right flank and pain that radiates around the sides to the abdomen. He had no nausea or vomiting. Patient states that his shading painter Dr. Cecilio Trujillo increased his fentanyl patch and will discontinue his oxycodone. Patient denies urinary symptoms. No history of kidney stones. Patient denies fevers. [facility] Medical History Alcohol use Back pain Bone and joint lesions of yaws Bone lesion CPAP (continuous positive airway pressure) dependence Diabetes Dietary restriction Gammopathy High cholesterol HTN (hypertension) Hypertension Non-smoker Normal colonoscopy Wears dentures Home Medications amlodipine 10 mg tablet 10 mg PO DAILY HTN 08/05/22 [History Last Taken 08/04/22] atorvastatin 10 mg tablet 10 mg PO DAILY CHOLESTEROL 08/05/22 [History Last Taken 08/04/22] lisinopril 40 mg tablet 40 mg PO DAILY HTN 08/05/22 [History Last Taken 08/04/22] metformin 500 mg tablet 500 mg PO BID DM 08/05/22 [History Last Taken 08/04/22] omeprazole 40 mg capsule,delayed release 40 mg PO DAILY GERD 08/05/22 [History Last Taken 08/04/22] ondansetron 4 mg disintegrating tablet 4 mg PO Q8H PRN PRN Nausea #10 tabs 09/02/22 [Rx Last Taken Unknown] oxycodone 5 mg capsule 5 mg PO Q8H PRN pain 14 days #42 caps 09/02/22 [Rx Last Taken 09/15/22 0640] carvedilol 3.125 mg tablet 3.125 mg PO BID 09/07/22 [History Last Taken Unknown] cholecalciferol (vitamin D3) 25 mcg (1,000 unit) capsule 25 mcg PO DAILY #30 caps 09/08/22 [Rx Last Taken Unknown] fentanyl 25 mcg/hr transdermal patch 1 patch transdermal Q72H 10/04/22 [History Last Taken Unknown] mecobalamin (vitamin B12) 1,000 mcg lozenges 1,000 mcg PO DAILY #60 ea 11/08/22 [Rx Last Taken Unknown] oxycodone-acetaminophen 5 mg-325 mg tablet 1 tab PO Q6H PRN PRN Pain 3 days #12 TABLETS 11/16/22 [Rx Last Taken Unknown] Allergy/AdvReac Type Severity Reaction Status Date / Time No Known Allergies Allergy Verified 11/16/22 13:54 Family History Other Adopted Surgical History Hx of gastric bypass Hx of umbilical hernia repair Social History household members: spouse current occupational status: employed 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 Smoking Status: Never smoker Electronic Cigarette Use: not used alcohol intake: never substance use type: does not use do you feel safe at home: Yes ROS ROS ED Review of Systems ROS Unobtainable: other Constitutional Constitutional ED: Reports lethargy; Denies chills, fever(s), sweats or weight loss Eyes Eyes: Denies blurry vision, change in vision or diplopia ENT ENT ED: Denies rhinorrhea or sore throat Cardiovascular Cardiovascular: Denies chest pain, orthopnea or racing heartbeat Respiratory/Chest Respiratory/Chest: Denies cough, dyspnea, dyspnea on exertion, orthopnea or sputum Gastrointestinal Gastrointestinal: Reports abdominal pain and constipation; Denies diarrhea, nausea or vomiting Genitourinary Genitourinary ED: Denies dysuria, hematuria or urinary frequency Musculoskeletal Musculoskeletal: Reports back pain; Denies arthralgias, myalgias or neck pain Integumentary Denies abscess, Abrasions or rash Neurologic Neurologic: Denies headache(s) or weakness Psychiatric Psychiatric: Denies anxiety, depression or suicidal thoughts Endocrine Endocrinology: Denies polydipsia, polyphagia or polyuria Hematologic/Lymphatic Hematologic/Lymphatic: Denies easy bleeding, easy bruising or lymphadenopathy Allergic/Immunologic Allergic/Immunologic ED: Denies mouth swelling, tongue swelling or urticaria EXAM Physical Exam Const Vital Signs: 11/16/22 13:56 Temperature 96.6 F L Temperature Source Temporal Pulse Rate 109 H Respiratory Rate 18 Blood Pressure 164/115 H Blood Pressure Mean 131 Pulse Ox 100 Oxygen Delivery Method Room Air Positive well nourished and well developed General Appearance ED: well developed and NAD HEENT Reports TM's clear and moist mucous membranes normocephalic and atraumatic; Negative for trauma or tenderness Tympanic Membrane ED: Yes TM's clear Eyes PERRL and EOMs intact bilaterally General Eye ED: Negative for pale conjunctiva or scleral icterus Neck no lymphadenopathy, supple and no JVD General: Negative for tenderness Chest Wall inspection of chest normal and palpation of chest normal Chest: Negative for tenderness Resp normal respiratory effort and clear to auscultation bilaterally Effort and Inspection: Negative for respiratory distress or pain with movement Auscultation: Negative for rhonchi, wheezes or diminished lung sounds Cardio regular rate, regular rhythm, S1 normal heart sound, S2 normal heart sound and no murmurs Peripheral Pulses: pulses 2+ throughout GI normal to inspection, nondistended, normoactive bowel sounds, soft to palpation, non-distended and no masses GI Narrative: Tenderness palpation over the right upper quadrant as well as the abdomen diffusely. With some guarding. There is no rebound, rigidity, or peritoneal signs. Patient has a central incision in the abdomen from prior gastric bypass surgery. Patient does have CVA tenderness on the right. Back/Spine no CVA tenderness and no thoracic nor lumbar tenderness Back/Spine Narrative: Evaluation of his back does reveal a small dressing over the left posterior iliac crest where he had his biopsy. No evidence of erythema or cellulitic changes noted. Extremity normal to inspection General Extremety ED: Negative for edema General Extremity: Negative for edema Neuro oriented x3, CN's II-XII intact bilaterally, no sensory deficits noted and gait normal Sensorium / Orientation: awake, alert, oriented to person, oriented to place and oriented to time Motor Exam: strength 5/5 throughout and strength abnormal Psych mental status grossly normal Skin no rashes or lesions noted and no wounds MDM MDM MDM Narrative Medical decision making narrative: Patient presents with right-sided back pain and in the differential would be kidney stone versus pain related to his multiple myeloma versus PE versus gallbladder disease. IV line established on arrival. Patient was medicated with Dilaudid and Zofran. We will obtain lab work-up as well as CT scan of the abdomen pelvis and a urinalysis. CT scan of abdomen pelvis that showed gallstones and mildly distended gallbladder. Patient had a gallbladder ultrasound ordered. CBC with differential showed a white count 6.7 with platelets of 263. Hemoglobin 13.2. D-dimer normal. Chemistries unremarkable. LFTs were normal. Chest x-ray unremarkable. Patient case discussed with his shading painter who is comfortable with ordering patient oxycodone for breakthrough pain. Care of patient turned over to evening physician awaiting ultrasound of gallbladder. I feel if no signs of cholecystitis and patient comfortable pain saavedra he can be discharged to home. Lab Data Labs: Laboratory Results - last 24 hr 11/16/22 11/16/22 11/16/22 14:35 14:35 14:35 WBC 6.7 RBC 4.29 L Hgb 13.2 Hct 39.0 L MCV 90.9 MCH 30.8 MCHC 33.8 RDW Std Deviation 49.1 H RDW Coeff of Darling 14.7 H Plt Count 263 MPV 10.1 Immature Gran % (Auto) 0.400 Neut % (Auto) 67.0 Lymph % (Auto) 19.7 Door % (Auto) 9.0 Eos % (Auto) 3.6 Baso % (Auto) 0.3 Absolute Neuts (auto) 4.5 Absolute Lymphs (auto) 1.32 Nucleated RBC % 0 D-Dimer Quant (PE/DVT) 0.35 Sodium 136 Potassium 4.3 Chloride 101 Carbon Dioxide 30.0 Anion Gap 5 BUN 9 Creatinine 0.90 Estim Creat Clear Calc 102.26 Est GFR (MDRD) Af Amer 114 Est GFR (MDRD) Non-Af 94 BUN/Creatinine Ratio 10.0 Glucose 135 H Calcium 9.4 Total Bilirubin 0.40 AST 14 L ALT 20 Alkaline Phosphatase 32 L Total Protein 10.3 H Albumin 3.1 L Globulin 7.2 H Albumin/Globulin Ratio 0.4 L Radiography Diagnostic Testing: Clinical Impression(s) from Imaging Studies Abdomen/Pelvis CT 11/16/22 14:23 IMPRESSION: undefined Chest X-Ray 11/16/22 15:07 IMPRESSION: No acute abnormality is seen. Electronically Signed: Boom Villa MD at 15:17 EDT , Discharge Plan Triage Chief Complaint: Back ED Provider: Andreas Hooper Dx/Rx/DC Orders Clinical Impression: Back pain, Abdominal pain, Cholelithiasis Instructions: ED Back Pain (Acute or Chronic), ED Gallstones with Biliary Colic, ED Pain, Acute, Uncertain Cause Prescriptions: New oxycodone-acetaminophen [oxycodone-acetaminophen] 5-325 mg tablet 1 tab PO Q6H PRN PRN (Reason: Pain) 3 Days Qty: 12 0RF No Action carvedilol 3.125 mg tablet 3.125 mg PO BID metformin 500 mg Tablet 500 mg PO BID atorvastatin 10 mg Tablet 10 mg PO DAILY omeprazole 40 mg Capsule,Delayed Release(Dr/Ec) 40 mg PO DAILY amlodipine 10 mg tablet 10 mg PO DAILY lisinopril 40 mg Tablet 40 mg PO DAILY oxycodone 5 mg capsule 5 mg PO Q8H PRN (Reason: pain) 14 Days Qty: 42 0RF ondansetron 4 mg tablet,disintegrating 4 mg PO Q8H PRN PRN (Reason: Nausea) Qty: 10 0RF fentanyl 25 mcg/hr Patch 72 Hour 1 patch TRANSDERMAL Q72H cholecalciferol (vitamin D3) 25 mcg (1,000 unit) capsule 25 mcg PO DAILY Qty: 30 3RF mecobalamin (vitamin B12) 1,000 mcg lozenge 1,000 mcg PO DAILY Qty: 60 0RF Rx Instructions: allow to dissolve in mouth OR may chew lightly before swallowing Primary Care Provider: Karla Washington Referrals: Karla Washington MD [Primary Care Provider] -
[2022-11-16] MEDS: Ondansetron 4 MG/2 ML Vial IV (14:39)
[2022-11-16] MEDS: HYDROmorphone 1 MG/ML Syringe IV ×4 (14:40→23:47)
[2022-11-16] MEDS: 0.9% Normal Saline 1,000 ML 150 ML IV (14:40)
[2022-11-16 14:58] LABS: Absolute Lymphocyte Count 1.32 X10^3/uL (0.83-4.51); Absolute Neutrophil Count 4.5 X10^3/uL (2.0-7.7); Basophil# 0.02 X10^3/uL; Basophil% 0.3 % (0-1); Eosinophil# 0.24 X10^3/uL; Eosinophils% 3.6 % (0-5); Hemoglobin 13.2 g/dL (13.0-16.5); Lymphocyte # 1.32 X10^3/ul (0.83-4.51); Lymphocyte % 19.7 % (19-41); Mean Corp Hgb Conc 33.8 g/dL (32-36); Mean Corpuscular Hgb 30.8 pg (27.0-32.0); Mean Corpuscular Volume 90.9 fL (80-94); Mean Platelet Vol. 10.1 fl (6.2-12.0); NRBC Flagged by Analyzer 0 % (0-5); Neutrophil # 4.48 X10^3/uL (2.7-7.7); Platelet Count 263 K/mm3 (150-450); RBC Distribution Width CV 14.7 % (11.6-14.6); RBC Distribution Width SD 49.1 fl (35.1-43.9); Red Blood Count 4.29 M/mm3 (4.6-6.2); White Blood Count 6.7 K/mm3 (4.4-11.0)
--- NOTE | 2022-11-16 15:07 | RAD_ITS ---
STUDY: X-RAY CHEST REASON FOR EXAM: Male, 51 years old. Flank pain TECHNIQUE: Single AP portable view of the chest. COMPARISON: None. FINDINGS: The lungs are clear and expanded. There is no demonstrated pleural abnormality. Normal size heart. Normal mediastinum and stephen. Normal visualized pulmonary arteries. There is atherosclerotic calcification of the aortic arch with tortuosity. Normal visualized thoracic spine. Normal visualized ribs, clavicles, and shoulders. There is no demonstrated abnormality of the visualized soft tissue structures of the upper abdomen. RAD/Chest 1 View (Portable) IMPRESSION: No acute abnormality is seen. Electronically Signed: Boom Villa MD at 15:17 EDT ,
[2022-11-16 15:09] LABS: ALB/GLOB Ratio 0.4 RATIO (0.9-2.4); AST(SGOT) 14 U/L (15-37); Alanine Aminotransfer ALT/SGPT 20 U/L (16-61); Albumin, Serum 3.1 g/dL (3.2-5.0); Alkaline Phosphatase 32 U/L (45-117); Anion Gap 5 (5-15); BUN 9 mg/dL (7-18); Calcium,Total 9.4 mg/dL (8.5-10.1); Chloride 101 mmol/L (98-107); EST Glomerular Filtration Rate 94 mL/min (>60); Est Glom Filt Rate - Afr Amer 114 mL/min (>60); Estimated Creatinine Clearance 102.26 ml/min; Globulin 7.2 g/dL (2.2-4.2); Glucose 135 mg/dL (74-106); Potassium 4.3 mmol/L (3.5-5.1); Protein, Total 10.3 g/dL (6.4-8.2); Sodium Level 136 mmol/L (136-145)
[2022-11-16 15:17] LABS: D-Dimer Quantitative (DVT/PE) 0.35 FEU/ug/m (0.27-0.49)
--- NOTE | 2022-11-16 15:20 | US_ITS ---
ACR Level 3 findings have been noted. An addendum which confirms receipt of the report will follow. INDICATION: abdominal pain EXAMINATION: US Abdomen RUQ (limited) TECHNIQUE: Bailey-scale and color Doppler imaging was performed of the right upper abdominal quadrant. COMPARISON: None. Findings: The liver is diffusely homogenous with overall increased echogenicity. There is no evidence of contour nodularity. No focal hepatic mass is identified. The main portal vein is normal in size and patent demonstrating hepatopetal flow. The gallbladder is distended, is remarkable for mobile, layering stones as well as trace pericholecystic fluid, however is without evidence of wall thickening. Sonographic Dasilva''s tenderness is not appreciated. There is no evidence of intrahepatic biliary ductal dilatation. The CBD is dilated measuring 10 mm at the level of the linda hepatis. The visualized portions of the pancreas are unremarkable without evidence of focal or diffuse enlargement. Specifically, the tail is obscured by overlying bowel gas. Right kidney measures 11.7 cm in length. It is normal in echogenicity. No focal renal lesion is identified. There is no evidence of hydronephrosis. US/Gallbladder IMPRESSION: Findings equivocal for acute cholecystitis. Choledocholithiasis with the CBD measuring up to 1 cm in diameter. No visualized stone or mass. Recommend MRCP. Fatty liver. Electronically Signed: Tadeo Pitts MD at 17:09 EDT ,
[2022-11-16 18:41] VITALS: BP 181/94; PULSE 87; RESP 14; O2SAT 99
[2022-11-16 18:46] LABS: Bacteria 0 SEEN /hpf (None Seen); Mucous, Urine 0 SEEN /hpf (<or=2+); Squamous Epithelial Cells - UA 0 SEEN /hpf (0-5)
[2022-11-16 19:01] LABS: Color, Urine Yellow (Yellow); Glucose, Dipstick Normal (Normal); Ketone-Dipstick Negative (Negative); Leukocyte Esterase-Dipstick 25 /ul (Negative); Nitrite-Dipstick Negative (Negative); Occult Blood-Urine 10 /ul (Negative); Protein-Dipstick Negative (Negative); Specific Gravity, Urine 1.015 (1.002-1.030); Urine Bilirubin Dipstick Negative (Negative); Urine Clarity Clear (Clear); Urine Urobilinogen 1 mg/dl (Normal)
[2022-11-16 19:11] LABS: Red Blood Cells-Urine 0-5 SEEN /hpf (0-5); White Blood Cells 0-5 SEEN /hpf (0-5)
[2022-11-16 19:20] VITALS: BP 174/95; PULSE 82; RESP 16; O2SAT 98
[2022-11-16 21:36] VITALS: BP 144/96; PULSE 93; RESP 16; O2SAT 93
--- NOTE | 2022-11-16 22:03 | PCM.HP.STD ---
[facility] - General General Date of Service: 11/16/22 Chief Complaint: Acute onset back and right upper quadrant discomfort [facility] Narrative JOVITA FOREMAN, is a 51 M who presents to [facility] with complaints of back pain and right upper quadrant abdominal discomfort with associated nausea beginning early yesterday morning. Patient states he underwent a bone biopsy at [facility] on 11/14/2022. He confirms this was an uncomplicated procedure and that evening he had dinner with some many hot dogs. Early in the morning?approximately 3 to 4:00 AM?he awoke with back pain that was associated with severe right upper quadrant pain and nausea. He denies any associated fevers or chills. He states he attempted several times to reach out to his pain management physician, but did not receive an answer so he decided to seek evaluation in our ER. Patient's work-up has been unremarkable for CBC without leukocytosis and CMP without hyperbilirubinemia or alkaline phosphatemia but right upper quadrant ultrasound demonstrated equivocal findings for acute cholecystitis with cholelithiasis and was read by radiology as consistent with choledocholithiasis given dilation of the common bile duct to 1 cm although no stone or mass was seen explicitly. Significantly, patient has a history of morbid obesity status post Sara-en-Y gastric bypass in 1999. He was previously over 600 pounds, but is now 322 pounds. Earlier this year patient had presented to me with left upper quadrant discomfort and given his history I became concerned for possible marginal ulcer. Therefore, I took him for a EGD and evaluation of his gastric pouch. There I did find mild mucosal ulceration and treated him with acid suppression/restriction of NSAIDs with good effect. [facility] Medical History Alcohol use Back pain Bone and joint lesions of yaws Bone lesion CPAP (continuous positive airway pressure) dependence Diabetes Dietary restriction Gammopathy High cholesterol HTN (hypertension) Hypertension Non-smoker Normal colonoscopy Wears dentures Home Medications amlodipine 10 mg tablet 10 mg PO DAILY HTN 08/05/22 [History Last Taken 08/04/22] atorvastatin 10 mg tablet 10 mg PO DAILY CHOLESTEROL 08/05/22 [History Last Taken 08/04/22] lisinopril 40 mg tablet 40 mg PO DAILY HTN 08/05/22 [History Last Taken 08/04/22] metformin 500 mg tablet 500 mg PO BID DM 08/05/22 [History Last Taken 08/04/22] omeprazole 40 mg capsule,delayed release 40 mg PO DAILY GERD 08/05/22 [History Last Taken 08/04/22] ondansetron 4 mg disintegrating tablet 4 mg PO Q8H PRN PRN Nausea #10 tabs 09/02/22 [Rx Last Taken Unknown] oxycodone 5 mg capsule 5 mg PO Q8H PRN pain 14 days #42 caps 09/02/22 [Rx Last Taken 09/15/22 0640] carvedilol 3.125 mg tablet 3.125 mg PO BID 09/07/22 [History Last Taken Unknown] cholecalciferol (vitamin D3) 25 mcg (1,000 unit) capsule 25 mcg PO DAILY #30 caps 09/08/22 [Rx Last Taken Unknown] fentanyl 25 mcg/hr transdermal patch 1 patch transdermal Q72H 10/04/22 [History Last Taken Unknown] mecobalamin (vitamin B12) 1,000 mcg lozenges 1,000 mcg PO DAILY #60 ea 11/08/22 [Rx Last Taken Unknown] oxycodone-acetaminophen 5 mg-325 mg tablet 1 tab PO Q6H PRN PRN Pain 3 days #12 TABLETS 11/16/22 [Rx Last Taken Unknown] Allergy/AdvReac Type Severity Reaction Status Date / Time No Known Allergies Allergy Verified 11/16/22 13:54 Family History Other Adopted Surgical History Hx of gastric bypass Hx of umbilical hernia repair Social History household members: spouse current occupational status: employed 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 Smoking Status: Never smoker Electronic Cigarette Use: not used alcohol intake: never substance use type: does not use do you feel safe at home: Yes Vital Signs Vital Signs Vital Signs: 11/16/22 13:56 11/16/22 18:41 11/16/22 19:20 Temperature 96.6 F L Temperature Source Temporal Pulse Rate 109 H 87 82 Respiratory Rate 18 14 16 Blood Pressure 164/115 H 181/94 H 174/95 H Blood Pressure Mean 131 123 121 Pulse Ox 100 99 98 Oxygen Delivery Method Room Air Room Air Room Air 11/16/22 21:36 Temperature Temperature Source Pulse Rate 93 Respiratory Rate 16 Blood Pressure 144/96 H Blood Pressure Mean 112 Pulse Ox 93 Oxygen Delivery Method Room Air Weight Weight: 322 lb Body Mass Index (BMI) 44.9 Physical Exam Const alert and oriented x3 Constitutional Narrative: Mild to moderate distress from abdominal discomfort General Appearance: cooperative Resp normal respiratory effort GI GI Narrative: Morbidly obese with abdominal striae. Nondistended. Soft and tender to palpation in the right upper quadrant with focal demonstration of positive Dasilva sign. Results Lab / Micro Data Result Diagrams: 11/16/22 14:35 11/16/22 14:35 Labs: Laboratory Results - last 24 hr 11/16/22 14:35: WBC 6.7, RBC 4.29 L, Hgb 13.2, Hct 39.0 L, MCV 90.9, MCH 30.8, MCHC 33.8, RDW Std Deviation 49.1 H, RDW Coeff of Darling 14.7 H, Plt Count 263, MPV 10.1, Immature Gran % (Auto) 0.400, Neut % (Auto) 67.0, Lymph % (Auto) 19.7, [place] % (Auto) 9.0, Eos % (Auto) 3.6, Baso % (Auto) 0.3, Absolute Neuts (auto) 4.5, Absolute Lymphs (auto) 1.32, Nucleated RBC % 0 11/16/22 14:35: D-Dimer Quant (PE/DVT) 0.35 11/16/22 14:35: Sodium 136, Potassium 4.3, Chloride 101, Carbon Dioxide 30.0, Anion Gap 5, BUN 9, Creatinine 0.90, Estim Creat Clear Calc 102.26, Est GFR (MDRD) Af Amer 114, Est GFR (MDRD) Non-Af 94, BUN/Creatinine Ratio 10.0, Glucose 135 H, Calcium 9.4, Total Bilirubin 0.40, AST 14 L, ALT 20, Alkaline Phosphatase 32 L, Total Protein 10.3 H, Albumin 3.1 L, Globulin 7.2 H, Albumin/Globulin Ratio 0.4 L 11/16/22 18:35: Urine Color Yellow, Urine Clarity Clear, Urine pH 6.0, Ur Specific [place] 1.015, Urine Protein Negative, Urine Glucose (UA) Normal, Urine Ketones Negative, Urine Occult Blood 10 H, Urine Nitrite Negative, Urine Bilirubin Negative, Urine Urobilinogen 1 H, Ur Leukocyte Esterase 25 H, Urine RBC 0-5 SEEN, Urine WBC 0-5 SEEN, Ur Squamous Epith Cells 0 SEEN, Urine Bacteria 0 SEEN, Urine Mucus 0 SEEN Radiology Impression Abdomen/Pelvis CT 11/16/22 14:23 IMPRESSION: undefined Chest X-Ray 11/16/22 15:07 IMPRESSION: No acute abnormality is seen. Electronically Signed: Boom Villa MD at 15:17 EDT , Gallbladder Ultrasound 11/16/22 15:20 IMPRESSION: Findings equivocal for acute cholecystitis. Choledocholithiasis with the CBD measuring up to 1 cm in diameter. No visualized stone or mass. Recommend MRCP. Fatty liver. Electronically Signed: Tadeo Pitts MD at 17:09 EDT , ADDENDUM: 11/16/22 1811 IMPRESSION: Findings equivocal for acute cholecystitis. Choledocholithiasis with the CBD measuring up to 1 cm in diameter. No visualized stone or mass. Recommend MRCP. Fatty liver. N.B. : Olu Garza MD, confirmed on 11/16/2022 18:03:12 (ET) that the healthcare facility has received the radiology report. Electronically Signed: Tadeo Pitts MD at 17:09 EDT , Assessment & Plan Assessment/Plan (1) Cholecystitis, acute with cholelithiasis: PLAN: This is a 51-year-old male with history of Sara-en-Y gastric bypass who presents with signs and symptoms suggestive of a diagnosis of acute cholecystitis. Interestingly he does not have a elevated white blood cell count, but does have sensation with inspiration during exam of his right upper quadrant consistent with positive Dasilva sign. Unfortunately he also has evidence of choledocholithiasis with a dilated common bile duct and given his surgical history this cannot be further evaluated in our facility since his common bile duct would not be reachable via conventional ERCP. Therefore, I have recommended a tertiary facility with capabilities to either perform a through?remnant exploration of the common bile duct versus PTC. Patient has received acceptance at the [facility] and is pending transfer. (2) Cholelithiasis with choledocholithiasis: Charges/Coding Visit Charges Office Visits / Consults: 38904 ED Visit; High/Urgent Severity
[2022-11-16 23:06] VITALS: BP 137/87; PULSE 82; RESP 16; TEMP 37.1; O2SAT 95
== END 2022-11-16 23:51 | disposition short-term general hospital (02) ==
PROVIDERS: Emergency Provider Emergency Medicine; PCP Internal Medicine; Visit Provider Emergency Medicine
DX: M54.9 Dorsalgia, unspecified (principal); E11.9 Type 2 diabetes mellitus without complications; K80.62 Calculus of gallbladder and bile duct with acute cholecystitis without obstruction; E78.00 Pure hypercholesterolemia, unspecified; I10 Essential (primary) hypertension; Z79.84 Long term (current) use of oral hypoglycemic drugs; R10.9 Unspecified abdominal pain; Z99.89 Dependence on other enabling machines and devices; Z79.899 Other long term (current) drug therapy
CPT/HCPCS: 71045; 74176; 76705; 80053; 81001; 85025; 85379; 96361; 96374; 96375; 96376; 99284; J7030; A4216; J2405

== ENCOUNTER → 2022-11-28 | Outpatient (CLI) | payer BC, SELFPAY ==
[2022-11-28 08:39] LABS: Bacteria 0 SEEN /hpf (None Seen)
[2022-11-28 12:39] LABS: Color, Urine Yellow (Yellow); Glucose, Dipstick Normal (Normal); Ketone-Dipstick 15 mg/dl (Negative); Leukocyte Esterase-Dipstick 25 /ul (Negative); Nitrite-Dipstick Negative (Negative); Occult Blood-Urine 10 /ul (Negative); Protein-Dipstick 30 mg/dl (Negative); Specific Gravity, Urine 1.025 (1.002-1.030); Urine Clarity Clear (Clear); Urine Urobilinogen 8 mg/dl (Normal)
[2022-11-28 12:43] LABS: Urine Bilirubin Dipstick 1 mg/dL (Negative)
[2022-11-28 12:48] LABS: Calcium Oxalate Crystals Ur RARE /hpf (<or=2+); Red Blood Cells-Urine 0-5 SEEN /hpf (0-5); Squamous Epithelial Cells - UA 0-5 SEEN /hpf (0-5); White Blood Cells 0-5 SEEN /hpf (0-5)
[2022-11-28 12:49] LABS: Mucous, Urine 2+ /hpf (<or=2+)
== END | disposition home or self-care (01) ==
LOC: LABSPEC 08:37
PROVIDERS: PCP Internal Medicine; Referring Provider Internal Medicine; Visit Provider Internal Medicine
DX: R82.90 Unspecified abnormal findings in urine (principal)
CPT/HCPCS: 81001

== ENCOUNTER 2022-12-12 18:19 | Emergency (ER) | payer BC, SELFPAY ==
[2022-12-12 18:20] VITALS: BP 172/101; PULSE 93; RESP 16; TEMP 36.3; O2SAT 100; BMI 43.9
--- NOTE | 2022-12-12 18:36 | EDS_ITS ---
HPI History of Present Illness Chief Complaint: Abd Pain [facility] Medical History Alcohol use Back pain Bone and joint lesions of yaws Bone lesion CPAP (continuous positive airway pressure) dependence Diabetes Dietary restriction Gammopathy High cholesterol HTN (hypertension) Hypertension Non-smoker Normal colonoscopy Wears dentures Home Medications amlodipine 10 mg tablet 10 mg PO DAILY HTN 08/05/22 [History Last Taken 08/04/22] atorvastatin 10 mg tablet 10 mg PO DAILY CHOLESTEROL 08/05/22 [History Last Taken 08/04/22] lisinopril 40 mg tablet 40 mg PO DAILY HTN 08/05/22 [History Last Taken 08/04/22] metformin 500 mg tablet 500 mg PO BID DM 08/05/22 [History Last Taken 08/04/22] carvedilol 3.125 mg tablet 3.125 mg PO BID 09/07/22 [History Last Taken Unknown] cholecalciferol (vitamin D3) 25 mcg (1,000 unit) capsule 25 mcg PO DAILY #30 caps 09/08/22 [Rx Last Taken Unknown] fentanyl 25 mcg/hr transdermal patch 1 patch transdermal Q72H 10/04/22 [History Last Taken Unknown] mecobalamin (vitamin B12) 1,000 mcg lozenges 1,000 mcg PO DAILY #60 ea 11/08/22 [Rx Last Taken Unknown] ondansetron 4 mg disintegrating tablet 4 mg PO Q6H PRN nausea and vomiting #30 tabs 11/28/22 [Rx Last Taken Unknown] Allergy/AdvReac Type Severity Reaction Status Date / Time No Known Allergies Allergy Verified 12/12/22 18:20 Family History Other Adopted Surgical History Hx of gastric bypass Hx of umbilical hernia repair Social History household members: spouse current occupational status: employed 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 Smoking Status: Never smoker Electronic Cigarette Use: not used alcohol intake: never substance use type: does not use do you feel safe at home: Yes EXAM Physical Exam Const Vital Signs: 12/12/22 18:20 12/12/22 19:38 Temperature 97.3 F L 97.3 F L Temperature Source Temporal Temporal Pulse Rate 93 93 Respiratory Rate 16 16 Blood Pressure 172/101 H 172/101 H Blood Pressure Mean 124 124 Pulse Ox 100 100 Oxygen Delivery Method Room Air [facility] Narr[place] Medical decision making narrative: HISTORY OF PRESENT ILLNESS: 51-year-old male here with mid right abdominal pain status post gallbladder removal a few weeks ago. Notes right mid abdominal pain. Notes episode of vomiting. Worse with movement. Last bowel movement was yesterday with no melena hematochezia. No fever. No urinary complaints. REVIEW OF SYSTEMS: Pertinent positives: Abdominal Pertinent negatives: Syncope, fever, constipation PHYSICAL EXAM: Nursing triage notes reviewed, Vital signs reviewed Constitutional: please see [facility] HENT: MMM Eyes: Pupils equal round and reactive to light, Extraocular muscles intact Neck: No stridor, no JVD, full neck ROM Lungs: Clear to auscultation, No wheezing or rales. No increased work of breathing, no conversational dyspnea, no accessory muscle use, no nasal flaring. No respiratory distress noted Heart: Regular rate and rhythm, No murmurs, No rubs and No gallops, 2+ distal pulses (radial, femoral, posterior tibial) in all extremities Abdomen: Soft, mild right sided abdominal tenderness but no rigidity, rebound or guarding, no obvious peritoneal signs, no palpable pulsatile abdominal masses, no auscultated abdominal bruit. Surgical site clean dry intact : No CVAT Extremities: No edema Neuro: No focal neurological deficits, cranial nerves II through XII intact, 5/5 strength in all extremities. Intact sensation to light touch in all extremities, 2+ reflexes bilateral patella tendons. Normal gait. No ataxia. Skin: No rash or lesions noted MEDICAL DECISION MAKING: Chief Complaint: Abdominal pain External records reviewed: Seen in the beginning of the month for acute cholecystitis, choledocholithiasis. Transferred to [facility] Factors affecting care: Sara-en-Y gastric bypass type 2 diabetes, myeloma, hyperlipidemia, status post cholecystectomy Social determinants of health: none History obtained from others: The patient's Consults: none ALL IMAGES (IF OBTAINED) HAVE BEEN PERSONALLY REVIEWED AND INTERPRETED BY MYSELF. CBC with no leukocytosis, anemia, no thrombocytopenia BMP without significant electrolyte abnormalities, no anion gap to suggest endorgan hypoperfusion, no acute kidney injury LFTs show no evidence of hepatobiliary pathology. Lipase is wnl indicating no pancreatic inflammation. MDM Narrative: Patient was hemodynamically stable, afebrile, nontoxic I considered the following differential diagnosis: Obstruction, perforation, appendicitis, intra-abdominal abscess, postop pain, musculoskeletal injury I obtained a CT scan abdomen pelvis to further elucidate the etiology patient complaints also obtain labs. CT scan with gas in the gallbladder fossa likely postsurgical. No evidence of acute surgical process in the abdomen or pelvis. Labs are unremarkable as well. I suspect the patient's presentation is secondary to gas and distention, postop pain. No clear life-limiting etiology to be ascertained. Patient was given strict return precautions, follow-up instructions and surgery follow-up instructions. The patient and/or family, caregivers express understanding. The patient and/or family, caregivers agrees with the plan. Total critical care time today provided was at least 0 minutes. This excludes separately billable procedures. Critical care time (if documented) is secondary to the patient having high probability of clinically significant/life threatening deterioration in the patient's condition which required my urgent intervention. Shared decision making: I will have a discussion with the patient and or visitors regarding risk/benefits of further testing or admission. They will be made aware of of the risk/benefits inherent in this decision they will be given the opportunity to voice understanding. Lab Data Attestation: I reviewed the patient's lab results. Labs: Laboratory Results - last 24 hr 12/12/22 19:00 WBC 4.5 RBC 3.88 L Hgb 11.6 L Hct 38.2 L MCV 98.5 H MCH 29.9 MCHC 30.4 L RDW Std Deviation 49.9 H RDW Coeff of Darling 13.8 Plt Count 219 MPV 10.3 Immature Gran % (Auto) 0.200 Neut % (Auto) 32.8 L Lymph % (Auto) 44.3 H [place] % (Auto) 10.2 H Eos % (Auto) 11.6 H Baso % (Auto) 0.9 Absolute Neuts (auto) 1.5 L Absolute Lymphs (auto) 1.99 Nucleated RBC % 0 Sodium 134 L Potassium 4.2 Chloride 106 Carbon Dioxide 24.0 Anion Gap 4 L BUN 12 Creatinine 0.92 Estim Creat Clear Calc 100.04 Est GFR (MDRD) Af Amer 110 Est GFR (MDRD) Non-Af 91 BUN/Creatinine Ratio 13.0 Glucose 143 H Calcium 8.5 Total Bilirubin 0.20 Direct Bilirubin 0.12 AST 19 ALT 23 Alkaline Phosphatase 53 Total Protein 9.1 H Albumin 2.5 L Globulin 6.6 H Lipase 26 Radiography Diagnostic Testing: Clinical Impression(s) from Imaging Studies Abdomen/Pelvis CT 12/12/22 18:43 IMPRESSION: 3.5 cm debris and gas collection in the gallbladder fossa. T8 vertebra plana and iliac bone lytic lesions compatible with known multiple myeloma. Electronically Signed: John Dubon MD at 20:19 EDT , Discharge Plan Triage Chief Complaint: Abd Pain ED Provider: Ankit Smith Dx/Rx/DC Orders Clinical Impression: Post-op pain, Status post cholecystectomy Instructions: Managing Post-Op Pain at Home Prescriptions: No Action carvedilol 3.125 mg tablet 3.125 mg PO BID ondansetron 4 mg tablet,disintegrating 4 mg PO Q6H PRN (Reason: nausea and vomiting) Qty: 30 0RF metformin 500 mg Tablet 500 mg PO BID atorvastatin 10 mg Tablet 10 mg PO DAILY amlodipine 10 mg tablet 10 mg PO DAILY lisinopril 40 mg Tablet 40 mg PO DAILY fentanyl 25 mcg/hr Patch 72 Hour 1 patch TRANSDERMAL Q72H cholecalciferol (vitamin D3) 25 mcg (1,000 unit) capsule 25 mcg PO DAILY Qty: 30 3RF mecobalamin (vitamin B12) 1,000 mcg lozenge 1,000 mcg PO DAILY Qty: 60 0RF Rx Instructions: allow to dissolve in mouth OR may chew lightly before swallowing Primary Care Provider: Karla Washington Referrals: Karla Washington MD [Primary Care Provider] - Activity Restrictions/Additional Instructions: Thank you for trusting us with your care today! Please take Tylenol (2 pills, 650 mg), ibuprofen (2 pills, 400 mg) every 6 hours as needed for pain and fever control. Please return to the emergency department if your symptoms change or worsen. S pecifically if cannot tolerate medicine by mouth. If develop worsening pain. If you lose consciousness Please follow with your surgeon for further outpatient evaluation and management. Disposition Disposition: Home, Self Care Discharge Date/Time: 12/12/22 21:12
--- NOTE | 2022-12-12 18:43 | CT_ITS ---
STUDY: CT ABDOMEN AND PELVIS WITH CONTRAST REASON FOR EXAM: Male, 51 years old. Right sided abdominal pain after cholecystectomy RADIATION DOSAGE (If Supplied By Facility): CTDIvol = ( 17.08 ) mGy, DLP = ( 1406.48 ) mGycm TECHNIQUE: IV 100mL Isovue-300 was administered. Transaxial images were obtained from the dome of the diaphragm to the symphysis pubis. Multiplanar coronal and sagittal images were reformatted. Individualized Dose Optimization Techniques Were Used For This CT. COMPARISON: 08/05/2022, 11/16/2022 FINDINGS: The visualized lung bases are unremarkable. The visualized portions of the heart are within normal limits. Normal liver. Interval cholecystectomy. 3.5 x 1.6 x 1.9 cm debris and gas collection in the gallbladder fossa. Normal spleen. Normal pancreas. Bilateral adrenal nodules redemonstrated. Prior bariatric surgery. Normal small intestine. Normal colon. The appendix is visualized and appears normal. Normal abdominal aorta. No retroperitoneal adenopathy. Normal right kidney. Normal left kidney. Normal urinary bladder. Normal visualized prostate gland. Normal abdominal wall. 2.4 left iliac bone punched-out lytic lesion with involvement of the medial cortex. Multiple other left more than right iliac bone lytic lesions. T8 vertebra plana redemonstrated. CT/Abdomen/Pelvis W IV Cont ONLY IMPRESSION: 3.5 cm debris and gas collection in the gallbladder fossa. T8 vertebra plana and iliac bone lytic lesions compatible with known multiple myeloma. Electronically Signed: John Dubon MD at 20:19 EDT ,
[2022-12-12 19:16] LABS: Absolute Lymphocyte Count 1.99 X10^3/uL (0.83-4.51); Absolute Neutrophil Count 1.5 X10^3/uL (2.0-7.7); Basophil# 0.04 X10^3/uL; Basophil% 0.9 % (0-1); Eosinophil# 0.52 X10^3/uL; Eosinophils% 11.6 % (0-5); Hematocrit 38.2 % (40-54); Hemoglobin 11.6 g/dL (13.0-16.5); Lymphocyte # 1.99 X10^3/ul (0.83-4.51); Lymphocyte % 44.3 % (19-41); Mean Corp Hgb Conc 30.4 g/dL (32-36); Mean Corpuscular Hgb 29.9 pg (27.0-32.0); Mean Corpuscular Volume 98.5 fL (80-94); Mean Platelet Vol. 10.3 fl (6.2-12.0); Monocyte# 0.46 X10^3/uL; Monocyte% 10.2 % (0-10); NRBC Flagged by Analyzer 0 % (0-5); Neutrophil # 1.47 X10^3/uL (2.7-7.7); Neutrophil % 32.8 % (47-70); Platelet Count 219 K/mm3 (150-450); RBC Distribution Width CV 13.8 % (11.6-14.6); RBC Distribution Width SD 49.9 fl (35.1-43.9); Red Blood Count 3.88 M/mm3 (4.6-6.2); White Blood Count 4.5 K/mm3 (4.4-11.0)
[2022-12-12] MEDS: Ondansetron 4 MG/2 ML Vial IV (19:17)
[2022-12-12] MEDS: Morphine 4 MG/ML Syringe IV ×2 (19:17→21:08)
[2022-12-12] MEDS: 0.9% Normal Saline 1,000 ML 1000 ML IV (19:18)
[2022-12-12 19:32] LABS: AST(SGOT) 19 U/L (15-37); Alanine Aminotransfer ALT/SGPT 23 U/L (16-61); Albumin, Serum 2.5 g/dL (3.2-5.0); Alkaline Phosphatase 53 U/L (45-117); Anion Gap 4 (5-15); BUN 12 mg/dL (7-18); Bilirubin, Direct 0.12 mg/dL (0.00-0.30); Calcium,Total 8.5 mg/dL (8.5-10.1); Chloride 106 mmol/L (98-107); Creatinine, Serum 0.92 mg/dL (0.70-1.30); EST Glomerular Filtration Rate 91 mL/min (>60); Est Glom Filt Rate - Afr Amer 110 mL/min (>60); Estimated Creatinine Clearance 100.04 ml/min; Globulin 6.6 g/dL (2.2-4.2); Glucose 143 mg/dL (74-106); Lipase 26 U/L (13-75); Potassium 4.2 mmol/L (3.5-5.1); Protein, Total 9.1 g/dL (6.4-8.2); Sodium Level 134 mmol/L (136-145)
[2022-12-12 19:38] VITALS: BP 172/101; PULSE 93; RESP 16; TEMP 36.3; O2SAT 100
== END 2022-12-12 21:12 | disposition home or self-care (01) ==
PROVIDERS: Emergency Provider Emergency Medicine; PCP Internal Medicine; Visit Provider Emergency Medicine
DX: G89.18 Other acute postprocedural pain (principal); C90.00 Multiple myeloma not having achieved remission; E11.9 Type 2 diabetes mellitus without complications; E78.00 Pure hypercholesterolemia, unspecified; Z90.49 Acquired absence of other specified parts of digestive tract; I10 Essential (primary) hypertension; Z79.899 Other long term (current) drug therapy; Z79.84 Long term (current) use of oral hypoglycemic drugs
CPT/HCPCS: 74177; 80048; 80076; 83690; 85025; 96361; 96374; 96375; 96376; 99283; J7030; A4216; J2405

== ENCOUNTER → 2023-06-11 | Outpatient (CLI) | payer BC, SELFPAY ==
[2023-06-11 08:41] LABS: Absolute Lymphocyte Count 0.89 X10^3/uL (0.83-4.51); Absolute Neutrophil Count 1.8 X10^3/uL (2.0-7.7); Basophil# 0.03 X10^3/uL; Basophil% 0.7 % (0-1); Eosinophil# 0.71 X10^3/uL; Eosinophils% 16.1 % (0-5); Hematocrit 40.2 % (40-54); Hemoglobin 12.4 g/dL (13.0-16.5); Lymphocyte # 0.89 X10^3/ul (0.83-4.51); Lymphocyte % 20.1 % (19-41); Mean Corp Hgb Conc 30.8 g/dL (32-36); Mean Corpuscular Hgb 29.6 pg (27.0-32.0); Mean Corpuscular Volume 95.9 fL (80-94); Mean Platelet Vol. 11.3 fl (6.2-12.0); Monocyte# 0.97 X10^3/uL; Monocyte% 21.9 % (0-10); NRBC Flagged by Analyzer 0 % (0-5); Neutrophil # 1.81 X10^3/uL (2.7-7.7); Platelet Count 202 K/mm3 (150-450); RBC Distribution Width CV 14.6 % (11.6-14.6); Red Blood Count 4.19 M/mm3 (4.6-6.2); White Blood Count 4.4 K/mm3 (4.4-11.0)
[2023-06-11 08:48] LABS: ALB/GLOB Ratio 0.9 RATIO (0.9-2.4); AST(SGOT) 39 U/L (15-37); Alanine Aminotransfer ALT/SGPT 95 U/L (16-61); Albumin, Serum 3.1 g/dL (3.2-5.0); Alkaline Phosphatase 103 U/L (45-117); Anion Gap 4 (5-15); BUN 4 mg/dL (7-18); Calcium,Total 8.6 mg/dL (8.5-10.1); Chloride 107 mmol/L (98-107); Creatinine, Serum 0.66 mg/dL (0.70-1.30); EST Glomerular Filtration Rate 133 mL/min (>60); Est Glom Filt Rate - Afr Amer 161 mL/min (>60); Globulin 3.3 g/dL (2.2-4.2); Glucose 129 mg/dL (74-106); Potassium 3.5 mmol/L (3.5-5.1); Protein, Total 6.4 g/dL (6.4-8.2); Sodium Level 141 mmol/L (136-145)
[2023-06-11 08:55] LABS: Cholesterol 142 mg/dL (200); High Density Lipoprotein 72 mg/dL; Triglycerides 109 mg/dL; Very Low Density Lipoprotein 22 mg/dL (5-40)
[2023-06-12 11:21] LABS: Vitamin B12 549 pg/mL (211-911); Vitamin D,25 Hydroxy 30.4 ng/mL
== END | disposition home or self-care (01) ==
PROVIDERS: PCP Internal Medicine
DX: C90.00 Multiple myeloma not having achieved remission (principal); E11.9 Type 2 diabetes mellitus without complications; E55.9 Vitamin D deficiency, unspecified; E78.2 Mixed hyperlipidemia; E53.8 Deficiency of other specified B group vitamins
CPT/HCPCS: 36415; 80053; 80061; 82306; 82607; 85025

== ENCOUNTER → 2023-06-14 | Outpatient (CLI) | payer BC, SELFPAY ==
--- NOTE | 2023-06-14 07:02 | US_ITS ---
HISTORY: ELEVATED LIVER ENZYMES, ON CHEMO. TECHNIQUE: Bailey scale and color doppler imaging was performed of the right upper quadrant. 56 images. COMPARISON: CT 03/18/2023, 12/12/2022. FINDINGS: LIVER: 18.5 cm in length. Heterogeneous echotexture without focal lesion demonstrated. No intrahepatic ductal dilatation. MAIN PORTAL VEIN: Patent. COMMON BILE DUCT: 6 mm in diameter. GALLBLADDER: Surgically absent. PANCREAS: Visualized proximal portion unremarkable. RIGHT KIDNEY: 11.8 cm in length with a cortical thickness of 1.8 cm. No hydronephrosis or gross renal mass demonstrated. US/Abdomen Limited IMPRESSION: Mild hepatomegaly with hepatic steatosis. Electronically Signed: Shanique Cantu MD at 13:35 EST ,
== END | disposition home or self-care (01) ==
LOC: US 07:01
PROVIDERS: PCP Internal Medicine
DX: C90.00 Multiple myeloma not having achieved remission (principal)
CPT/HCPCS: 76705

== ENCOUNTER 2023-11-01 12:08 | Outpatient (CLI) | payer BC, SELFPAY ==
[2023-11-01 12:48] VITALS: BP 137/86; PULSE 108; RESP 16; TEMP 36.6; O2SAT 97; BMI 35.9
[2023-11-01] MEDS: Lactated Ringers 1,000 ML 999 ML IV (13:05)
[2023-11-01 13:57] LABS: Absolute Lymphocyte Count 0.78 X10^3/uL (0.83-4.51); Absolute Neutrophil Count 2.5 X10^3/uL (2.0-7.7); Basophil# 0.01 X10^3/uL; Basophil% 0.2 % (0-1); Differential Indicated SCAN CRITERIA MET; Hematocrit 28.1 % (40-54); Hemoglobin 8.9 g/dL (13.0-16.5); Lymphocyte # 0.78 X10^3/ul (0.83-4.51); Lymphocyte % 16.7 % (19-41); Mean Corp Hgb Conc 31.7 g/dL (32-36); Mean Corpuscular Hgb 29.5 pg (27.0-32.0); Mean Platelet Vol. 12.6 fl (6.2-12.0); Monocyte# 1.27 X10^3/uL; Monocyte% 27.3 % (0-10); NRBC Flagged by Analyzer 0 % (0-5); Neutrophil # 2.54 X10^3/uL (2.7-7.7); Neutrophil % 54.5 % (47-70); POSITIVE MORPHOLOGY YES; Platelet Count 120 K/mm3 (150-450); RBC Distribution Width CV 21.8 % (11.6-14.6); RBC Distribution Width SD 73.3 fl (35.1-43.9); Red Blood Count 3.02 M/mm3 (4.6-6.2); White Blood Count 4.7 K/mm3 (4.4-11.0)
[2023-11-01 14:09] LABS: AST(SGOT) 19 U/L (15-37); Alanine Aminotransfer ALT/SGPT 17 U/L (16-61); Albumin, Serum 2.8 g/dL (3.2-5.0); Alkaline Phosphatase 44 U/L (45-117); Anion Gap 12 (5-15); BUN 2 mg/dL (7-18); Bilirubin, Direct 0.24 mg/dL (0.00-0.30); Calcium,Total 8.7 mg/dL (8.5-10.1); Chloride 102 mmol/L (98-107); EST Glomerular Filtration Rate 236 mL/min (>60); Est Glom Filt Rate - Afr Amer 285 mL/min (>60); Estimated Creatinine Clearance 277.89 ml/min; Globulin 2.7 g/dL (2.2-4.2); Glucose 110 mg/dL (74-106); Potassium 3.7 mmol/L (3.5-5.1); Protein, Total 5.5 g/dL (6.4-8.2); Sodium Level 138 mmol/L (136-145)
[2023-11-01 14:22] VITALS: BP 158/81; PULSE 98; RESP 16; TEMP 36.1; O2SAT 100
[2023-11-01 14:30] LABS: Anisocytosis 2+
== END 2023-11-01 23:59 | disposition home or self-care (01) ==
LOC: MEDOUTP 12:09
PROVIDERS: PCP Internal Medicine
DX: C90.00 Multiple myeloma not having achieved remission (principal)
CPT/HCPCS: 96360; 80048; 80076; 85025; J7120; A4216

== ENCOUNTER 2023-11-03 07:41 | Outpatient (CLI) | payer BC, SELFPAY ==
[2023-11-03 08:05] VITALS: BP 139/90; PULSE 110; RESP 16; TEMP 36; O2SAT 99; BMI 36.8
[2023-11-03] MEDS: Lactated Ringers 1,000 ML 999 ML IV (08:25)
[2023-11-03 09:51] VITALS: BP 143/89; PULSE 87; RESP 16; TEMP 36.2; O2SAT 96
== END 2023-11-03 23:59 | disposition home or self-care (01) ==
LOC: MEDOUTP 07:41
PROVIDERS: PCP Internal Medicine
DX: C90.00 Multiple myeloma not having achieved remission (principal)
CPT/HCPCS: 96360; J7120; A4216

== ENCOUNTER 2023-11-09 08:52 | Outpatient (CLI) | payer BC, SELFPAY ==
[2023-11-09 09:02] VITALS: BP 132/90; PULSE 127; RESP 16; TEMP 35.6; O2SAT 98
[2023-11-09] MEDS: Lactated Ringers 1,000 ML 999 ML IV (09:21)
[2023-11-09 09:36] LABS: Absolute Lymphocyte Count 2.37 X10^3/uL (0.83-4.51); Absolute Neutrophil Count 1.9 X10^3/uL (2.0-7.7); Basophil# 0.03 X10^3/uL; Basophil% 0.6 % (0-1); Eosinophil# 0.05 X10^3/uL; Hematocrit 37.7 % (40-54); Hemoglobin 12.2 g/dL (13.0-16.5); Lymphocyte # 2.37 X10^3/ul (0.83-4.51); Lymphocyte % 45.4 % (19-41); Mean Corp Hgb Conc 32.4 g/dL (32-36); Mean Corpuscular Hgb 30.6 pg (27.0-32.0); Mean Corpuscular Volume 94.5 fL (80-94); Mean Platelet Vol. 12.7 fl (6.2-12.0); Monocyte# 0.85 X10^3/uL; Monocyte% 16.3 % (0-10); NRBC Flagged by Analyzer 0 % (0-5); Neutrophil % 36.3 % (47-70); POSITIVE MORPHOLOGY YES; Platelet Count 135 K/mm3 (150-450); RBC Distribution Width CV 21.8 % (11.6-14.6); RBC Distribution Width SD 73.4 fl (35.1-43.9); Red Blood Count 3.99 M/mm3 (4.6-6.2); White Blood Count 5.2 K/mm3 (4.4-11.0)
[2023-11-09 09:56] LABS: Differential Indicated SCAN CRITERIA MET
[2023-11-09 09:58] LABS: Differential Comment SCANNED; Ovalocyte 2+
[2023-11-09 09:59] LABS: Anisocytosis 2+; Microcytosis 1+; Schistocytes 1+
[2023-11-09 10:01] LABS: AST(SGOT) 55 U/L (15-37); Alanine Aminotransfer ALT/SGPT 54 U/L (16-61); Alkaline Phosphatase 42 U/L (45-117); Anion Gap 11 (5-15); BUN 6 mg/dL (7-18); BUN/Creat Ratio 12.1 RATIO (10-20); Bilirubin, Direct 0.28 mg/dL (0.00-0.30); Calcium,Total 8.6 mg/dL (8.5-10.1); Chloride 102 mmol/L (98-107); EST Glomerular Filtration Rate 186 mL/min (>60); Est Glom Filt Rate - Afr Amer 225 mL/min (>60); Globulin 2.8 g/dL (2.2-4.2); Glucose 107 mg/dL (74-106); Potassium 2.8 mmol/L (3.5-5.1); Protein, Total 5.8 g/dL (6.4-8.2); Sodium Level 140 mmol/L (136-145)
--- NOTE | 2023-11-09 10:49 | NURSING ---
Spoke with Neymar at [facility] regarding patient's current potassium level and orders. Patient does state that he has no current potassium at home and I advised Neymar of this. He states that he will follow up with MD and staff and return call with new orders as needed. Also advised that they will need to contact patient regarding any new orders and follow up. tawanda Bustamante
[2023-11-09] MEDS: Potassium Chloride Oral Tablet 20 MEQ 80 MEQ PO (10:56)
[2023-11-09 10:59] VITALS: BP 124/84; PULSE 90; RESP 14; TEMP 35.9; O2SAT 99
[2023-11-09 17:29] LABS: Xtra CC BBK (Onc ONLY) EXTRA TUBE
== END 2023-11-09 23:59 | disposition home or self-care (01) ==
LOC: MEDOUTP 08:52
PROVIDERS: PCP Internal Medicine
DX: C90.00 Multiple myeloma not having achieved remission (principal)
CPT/HCPCS: 96360; 80048; 80076; 85025; A4216

== ENCOUNTER 2023-11-13 08:11 | Outpatient (CLI) | payer OTHER, SELFPAY ==
[2023-11-13 08:28] VITALS: BP 130/88; PULSE 110; RESP 16; TEMP 36.1; O2SAT 99; BMI 34.8
[2023-11-13] MEDS: Lactated Ringers 1,000 ML 999 ML IV (08:51)
[2023-11-13 09:01] LABS: Absolute Lymphocyte Count 2.71 X10^3/uL (0.83-4.51); Basophil# 0.02 X10^3/uL; Basophil% 0.3 % (0-1); Eosinophil# 0.25 X10^3/uL; Eosinophils% 4.3 % (0-5); Hematocrit 38.3 % (40-54); Lymphocyte # 2.71 X10^3/ul (0.83-4.51); Lymphocyte % 46.8 % (19-41); Mean Corp Hgb Conc 31.3 g/dL (32-36); Mean Corpuscular Hgb 30.2 pg (27.0-32.0); Mean Corpuscular Volume 96.5 fL (80-94); Mean Platelet Vol. 12.7 fl (6.2-12.0); Monocyte# 0.84 X10^3/uL; Monocyte% 14.5 % (0-10); NRBC Flagged by Analyzer 0 % (0-5); Neutrophil # 1.95 X10^3/uL (2.7-7.7); Neutrophil % 33.8 % (47-70); POSITIVE MORPHOLOGY YES; Platelet Count 125 K/mm3 (150-450); RBC Distribution Width CV 20.9 % (11.6-14.6); RBC Distribution Width SD 71.8 fl (35.1-43.9); Red Blood Count 3.97 M/mm3 (4.6-6.2); White Blood Count 5.8 K/mm3 (4.4-11.0)
[2023-11-13 09:03] LABS: Differential Indicated SCAN CRITERIA MET
[2023-11-13 09:34] LABS: Anisocytosis 1+
[2023-11-13 09:36] LABS: AST(SGOT) 42 U/L (15-37); Alanine Aminotransfer ALT/SGPT 40 U/L (16-61); Albumin, Serum 2.9 g/dL (3.2-5.0); Alkaline Phosphatase 46 U/L (45-117); Anion Gap 6 (5-15); BUN 7 mg/dL (7-18); BUN/Creat Ratio 13.2 RATIO (10-20); Bilirubin, Direct 0.26 mg/dL (0.00-0.30); Calcium,Total 8.7 mg/dL (8.5-10.1); Chloride 105 mmol/L (98-107); Creatinine, Serum 0.53 mg/dL (0.70-1.30); EST Glomerular Filtration Rate 173 mL/min (>60); Est Glom Filt Rate - Afr Amer 209 mL/min (>60); Estimated Creatinine Clearance 206.25 ml/min; Globulin 2.6 g/dL (2.2-4.2); Glucose 111 mg/dL (74-106); Potassium 3.3 mmol/L (3.5-5.1); Protein, Total 5.5 g/dL (6.4-8.2); Sodium Level 140 mmol/L (136-145)
[2023-11-13 10:05] VITALS: BP 131/80; PULSE 95; RESP 16; TEMP 35.9; O2SAT 94
--- NOTE | 2023-11-13 10:06 | NURSING ---
Patient's labs reviewed with him potassium improving but still requires addtional dose today. Reviewed with patient and he declines to take 80meq at once here. Patient states that he has not taken his AM dose yet. Reviewed with patient and he plans to take 2 tabs this morning and again at PM dose for total of 80meq today and resume 40meq daily tomorrow. Patient will follow up as needed. To be seen in [place] this Thurs. This nurse will also follow up and notify provider of labs and plans for potassium dose today. VASU estrada
[2023-11-13 16:54] LABS: Xtra CC BBK (Onc ONLY) EXTRA TUBE; Xtra Tube EP Lab EXTRA TUBE
== END 2023-11-13 23:59 | disposition home or self-care (01) ==
LOC: MEDOUTP 08:14
PROVIDERS: PCP Internal Medicine
DX: C90.00 Multiple myeloma not having achieved remission (principal)
CPT/HCPCS: 96360; 80048; 80076; 85025; J7120; A4216

== ENCOUNTER 2023-11-20 08:42 | Outpatient (CLI) | payer OTHER, SELFPAY ==
[2023-11-20] MEDS: Lactated Ringers 1,000 ML 999 ML IV (08:57)
[2023-11-20 08:59] VITALS: BP 137/83; PULSE 101; RESP 16; TEMP 35.9; O2SAT 100; BMI 34.4
[2023-11-20 10:08] VITALS: BP 129/80; PULSE 80; RESP 16; TEMP 35.8; O2SAT 100
== END 2023-11-20 23:59 | disposition home or self-care (01) ==
PROVIDERS: PCP Internal Medicine
DX: C90.00 Multiple myeloma not having achieved remission (principal)
CPT/HCPCS: 96360; J7120; A4216

== ENCOUNTER 2023-11-23 08:17 | Outpatient (CLI) | payer OTHER, SELFPAY ==
[2023-11-23 08:21] VITALS: BP 118/79; PULSE 105; RESP 16; TEMP 36.4; O2SAT 99
[2023-11-23] MEDS: Lactated Ringers 1,000 ML 999 ML IV (08:36)
[2023-11-23 09:41] VITALS: BP 119/81; PULSE 81; RESP 16
== END 2023-11-23 23:59 | disposition home or self-care (01) ==
LOC: MEDOUTP 08:17
PROVIDERS: PCP Internal Medicine
DX: C90.00 Multiple myeloma not having achieved remission (principal)
CPT/HCPCS: 96365; J7120; A4216

== ENCOUNTER 2023-11-27 08:41 | Outpatient (CLI) | payer OTHER, SELFPAY ==
[2023-11-27] MEDS: Lactated Ringers 1,000 ML 999 ML IV (08:59)
[2023-11-27 09:01] VITALS: BP 126/79; PULSE 92; RESP 16; TEMP 36.6; O2SAT 99; BMI 35.8
[2023-11-27 10:12] VITALS: BP 121/82; PULSE 74; RESP 16; TEMP 36.4; O2SAT 99
== END 2023-11-27 23:59 | disposition home or self-care (01) ==
LOC: MEDOUTP 08:41
PROVIDERS: PCP Internal Medicine
DX: C90.00 Multiple myeloma not having achieved remission (principal)
CPT/HCPCS: 96360; J7120; A4216

== ENCOUNTER 2023-11-30 08:30 | Outpatient (CLI) | payer OTHER, SELFPAY ==
[2023-11-30 08:41] VITALS: BP 127/86; PULSE 79; RESP 16; TEMP 36.7; O2SAT 98
[2023-11-30] MEDS: Lactated Ringers 1,000 ML 999 ML IV (09:10)
[2023-11-30 10:21] VITALS: BP 123/78; PULSE 73
== END 2023-11-30 23:59 | disposition home or self-care (01) ==
LOC: MEDOUTP 08:30
PROVIDERS: PCP Internal Medicine
DX: C90.00 Multiple myeloma not having achieved remission (principal)
CPT/HCPCS: 96360; J7120; A4216

== ENCOUNTER 2023-12-07 08:25 | Outpatient (CLI) | payer OTHER, SELFPAY ==
[2023-12-07] MEDS: Lactated Ringers 1,000 ML 1000 ML IV (08:35)
[2023-12-07 08:39] VITALS: BP 141/85; PULSE 83; RESP 16; TEMP 36.4; O2SAT 100
[2023-12-07 09:42] VITALS: BP 146/86; PULSE 67; RESP 16; TEMP 36.4; O2SAT 100
== END 2023-12-07 23:59 | disposition home or self-care (01) ==
LOC: MEDOUTP 08:25
PROVIDERS: PCP Internal Medicine
DX: C90.00 Multiple myeloma not having achieved remission (principal)
CPT/HCPCS: 96360; J7120; A4216

== ENCOUNTER 2023-12-11 08:39 | Outpatient (CLI) | payer OTHER, SELFPAY ==
[2023-12-11] MEDS: 0.9% NaCl Peripheral Flush Adult/Peds IV (08:49)
[2023-12-11] MEDS: Lactated Ringers 1,000 ML 1000 ML IV (08:58)
[2023-12-11 08:59] VITALS: BP 130/90; PULSE 76; RESP 16; TEMP 36.7
[2023-12-11 10:08] VITALS: BP 148/75; PULSE 75
== END 2023-12-11 23:59 | disposition home or self-care (01) ==
LOC: MEDOUTP 08:39
PROVIDERS: PCP Internal Medicine
DX: C90.00 Multiple myeloma not having achieved remission (principal)
CPT/HCPCS: 96360; J7120; A4216

== ENCOUNTER 2023-12-15 08:17 | Outpatient (CLI) | payer OTHER, SELFPAY ==
[2023-12-15 08:30] VITALS: BP 123/89; PULSE 104; RESP 16; TEMP 36.8; O2SAT 98; BMI 34.4
[2023-12-15] MEDS: Lactated Ringers 1,000 ML 999 ML IV (08:50)
[2023-12-15 10:06] VITALS: BP 124/82; PULSE 79; RESP 16; TEMP 36.6; O2SAT 98
== END 2023-12-15 23:59 | disposition home or self-care (01) ==
LOC: MEDOUTP 08:17
PROVIDERS: PCP Internal Medicine
DX: C90.00 Multiple myeloma not having achieved remission (principal)
CPT/HCPCS: 96360; J7120; A4216

== ENCOUNTER → 2024-06-14 | Outpatient (CLI) | payer OTHER, SELFPAY ==
--- NOTE | 2024-06-14 18:36 | CT_ITS ---
STUDY: CT THORACIC SPINE WITHOUT CONTRAST REASON FOR EXAM: Male, 53 years old. FX RADIATION DOSAGE (If Supplied By Facility): CTDIvol = ( 44.41 ) mGy, DLP = ( 1600.88 ) mGycm TECHNIQUE: The patient was scanned in a multi detector CT scanner. High resolution imaging was performed. Images were obtained from to . Sagittal and coronal images were reconstructed. Individualized dose optimization techniques were used for this CT. COMPARISON: None. FINDINGS: Normal kyphosis of the thoracic spine. There is no substantial scoliosis. There is a severe pathologic compression fracture of T8 demonstrating both lucent and sclerotic components demonstrating incomplete healing of known malignant myeloma Possibility of extradural extension of tumor into the spinal canal cannot be excluded. No other acute fracture is demonstrated however there are multiple scattered lytic lesions throughout the thoracic spine and multiple ribs without cortical destruction which may be consistent with early malignant changes.. The soft tissue structures are unremarkable. CT/Spine Thoracic without Contras IMPRESSION: Incompletely healed pathologic fracture of T8 as well as multiple other scattered lucent lesions possibly early myelomatous deposits.. MRI with contrast would be helpful for further evaluation Electronically Signed: Brandan Michele MD at 21:32 EST ,
--- NOTE | 2024-06-14 18:36 | CT_ITS ---
STUDY: CT CERVICAL SPINE WITHOUT CONTRAST REASON FOR EXAM: Male, 53 years old. CLOSED FX RADIATION DOSAGE (If Supplied By Facility): CTDIvol = ( 22.86 ) mGy, DLP = ( 523.77 ) mGycm TECHNIQUE: High resolution transaxial imaging was performed without contrast material. Sagittal and coronal images were reconstructed. Individualized dose optimization techniques were used for this CT. COMPARISON: None FINDINGS: Normal craniovertebral junction. Normal anterior atlantoaxial articulation. Normal odontoid process. No evidence for acute fracture or subluxation. There is multifocal osteopenia for stated age without bryan cortical destructive of indeterminate etiology but may be consistent with clinical history of multiple myeloma Normal cervical lordosis. Normal vertebral bodies and posterior osseous elements. C2-3: Normal endplates. Normal disc height and morphology. Normal central canal and intervertebral neuroforamina. C3-4: Anterior endplate spurring. Normal disc height and morphology. Normal central canal and intervertebral neuroforamina. C4-5: Anterior endplate spurring. Normal disc height and morphology. Normal central canal and intervertebral neuroforamina. C5-6: Anterior endplate spurring. Normal disc height and morphology. Normal central canal and intervertebral neuroforamina. C6-7: Anterior endplate spurring. Normal disc height and morphology. Normal central canal and intervertebral neuroforamina. C7-T1: Normal endplates. Normal disc height and morphology. Normal central canal and intervertebral neuroforamina. Ossification of the nuchal ligament at C4-5 CT/Spine Cervical without Contras IMPRESSION: Mild spondylosis. No acute fracture or subluxation. Multifocal spotty areas of osteopenia for stated age. Electronically Signed: Brandan Michele MD at 16:34 EST Reading Location ID and State: [facility] / [place] Tel , Service support ,
--- NOTE | 2024-06-14 18:36 | CT_ITS ---
STUDY: CT LUMBAR SPINE WITHOUT CONTRAST REASON FOR EXAM: Male, 53 years old. FX RADIATION DOSAGE (If Supplied By Facility): CTDIvol = ( 46.97 ) mGy, DLP = ( 1646.82 ) mGycm TECHNIQUE: The patient was scanned in a multi detector CT scanner. High resolution transaxial imaging was performed. Images were obtained from T11 to upper S5. Sagittal and coronal images were reconstructed. Individualized dose optimization techniques were used for this CT. The protocol utilizes one or more of the following dose reduction techniques: automated exposure control, adjustment of mA and/or kV according to patient size, and/or use of iterative reconstruction technique. COMPARISON: None FINDINGS: Normal lumbar lordosis. There is no substantial scoliosis. Multiple lytic lesions throughout the osseous elements of the lumbar spine including the sacrum and iliac bones secondary to known multiple myeloma. Mild central compression fracture of the upper L2 vertebral body and moderate central compression fracture of the upper L3 vertebral body. Mild central compression fracture of the lower L5 vertebral body. T11-T12, T12-L1 and L1-2: Normal endplates. Normal disc height and morphology. Normal bilateral facet joints. Normal central canal and bilateral lateral recesses. Normal bilateral intervertebral neural foramina. L2-3: Normal endplates. Normal disc height and morphology. Normal bilateral facet joints. Normal central canal and bilateral lateral recesses. Normal bilateral intervertebral neural foramina. L3-4: Normal endplates. Normal disc height and morphology. Normal bilateral facet joints. Normal central canal and bilateral lateral recesses. Normal bilateral intervertebral neural foramina. L4-5: Normal endplates. Normal disc height and morphology. Normal bilateral facet joints. Normal central canal and bilateral lateral recesses. Normal bilateral intervertebral neural foramina. L5-S1: Normal endplates. Normal disc height and morphology. Normal bilateral facet joints. Normal central canal and bilateral lateral recesses. Normal bilateral intervertebral neural foramina. Normal visualized paraspinous soft tissue structures. CT/Spine Lumbar without Contrast IMPRESSION: 1. Multiple lytic lesions throughout the osseous elements of the lumbar spine including the sacrum and iliac bones secondary to known multiple myeloma. 2. Moderate central compression fracture of the upper L3 vertebral body. This was not present on 09/02/2022. 3. Mild central compression fracture of the upper L2 vertebral body. This was not present on 09/02/2022 4. Mild central compression fracture of the lower L5 vertebral body. This was present on 09/02/2022. 5. No other additional findings or changes although limited by the absence of intrathecal contrast, motion degradation and low spatial resolution images. Electronically Signed: Con Hayes MD at 9:20 EST ,
== END | disposition home or self-care (01) ==
LOC: CT 18:31
PROVIDERS: PCP Internal Medicine
DX: C90.00 Multiple myeloma not having achieved remission (principal); S22.069G Unspecified fracture of T7-T8 vertebra, subsequent encounter for fracture with delayed healing
CPT/HCPCS: 72125; 72128; 72131

== ENCOUNTER → 2024-07-03 | Outpatient (CLI) | payer OTHER, SELFPAY ==
[2024-07-03 12:36] LABS: Vitamin B12 1861 pg/mL (211-911); Vitamin D,25 Hydroxy 27.3 ng/mL
[2024-07-03 13:07] LABS: Cholesterol 118 mg/dL (200); High Density Lipoprotein 72 mg/dL; PSA,Total- Diagnostic 0.67 ng/mL (0.0-4.0); Triglycerides 58 mg/dL; Very Low Density Lipoprotein 12 mg/dL (5-40)
== END | disposition home or self-care (01) ==
LOC: BIMLAB 08:08
PROVIDERS: PCP Internal Medicine; Referring Provider Internal Medicine; Visit Provider Internal Medicine
DX: E55.9 Vitamin D deficiency, unspecified (principal); E53.8 Deficiency of other specified B group vitamins; R39.12 Poor urinary stream; E78.2 Mixed hyperlipidemia
CPT/HCPCS: 36415; 80061; 82306; 82607; 84153

== ENCOUNTER → 2024-07-12 | Outpatient (CLI) | payer OTHER, SELFPAY ==
--- NOTE | 2024-07-12 06:55 | US_ITS ---
PROCEDURE: POST VOID RESIDUAL BLADDER REASON FOR EXAM: Evaluate bladder postvoid residual. TECHNIQUE: Ultrasound imaging of urinary bladder, also with evaluation of postvoid residual.. COMPARISON: None.. FINDINGS: Evaluation of the urinary bladder demonstrates no sonographically evident calculus at the ureterovesicular junctions. Bilateral ureteral jets are visualized. A mostly filled urinary bladder is seen, with estimated volume of 205.9 mL. Following voiding, estimated postvoid residual of 51.4 mL. Therefore, void volume of 154.6 mL. The urinary bladder wall appears within the normal range, with wall thickness measured at 3.7 mm. No mass is seen. The prostate gland is mildly enlarged, measured at 29.2 mL. US/Post Void Residual Bladder IMPRESSION: 1. Postvoid residual and volume estimations as described. 2. Mild prostatomegaly. Reading Location: [address]
== END | disposition home or self-care (01) ==
LOC: US 06:48
PROVIDERS: PCP Internal Medicine; Referring Provider Internal Medicine; Visit Provider Internal Medicine
DX: R39.12 Poor urinary stream (principal)
CPT/HCPCS: 51798

== ENCOUNTER 2024-08-22 14:20 | Emergency (ER) | payer OTHER, SELFPAY ==
[2024-08-22 14:21] VITALS: BP 146/103; PULSE 102; RESP 17; TEMP 36.8; O2SAT 100; BMI 32.5
--- NOTE | 2024-08-22 15:31 | EX.ED.DYSGE1 ---
HPI History of Present Illness Chief Complaint: Syncope [facility] Medical History Bone lesion Hypertension Gammopathy Bone and joint lesions of yaws Normal colonoscopy Wears dentures Alcohol use High cholesterol Back pain Dietary restriction Non-smoker CPAP (continuous positive airway pressure) dependence Diabetes HTN (hypertension) Home Medications ?Medication ?Instructions ?Recorded ?Last Taken ?Type fentanyl 25 mcg/hr transdermal 1 patch transdermal Q72H 10/04/22 Unknown History patch acyclovir 400 mg tablet 400 mg PO DAILY #90 tabs 03/02/23 Unknown Rx prochlorperazine maleate 10 mg 10 mg PO Q12H 03/02/23 Unknown History tablet atorvastatin 10 mg tablet 10 mg PO DAILY CHOLESTEROL #90 tabs 03/13/23 Unknown Rx cholecalciferol (vitamin D3) 25 25 mcg PO DAILY #90 caps 03/13/23 Unknown Rx mcg (1,000 unit) capsule aspirin 81 mg tablet,delayed 81 mg PO DAILY 03/27/23 Unknown History release (Adult Low Dose Aspirin) amlodipine 10 mg tablet 10 mg PO DAILY HTN #90 tabs 06/12/23 Unknown Rx potassium 20 mg chewable tablet 20 mg PO BID 11/13/23 Unknown History calcium 500 mg (as 1 tab PO BID 07/03/24 Unknown History carbonate)-vitamin D3 5 mcg (200 unit) tablet (Oyster Shell Calcium-Vitamin D3) colestipol 1 gram tablet 1 g PO ONCE 07/03/24 Unknown History cyclobenzaprine 10 mg tablet mg PO 3XD 07/03/24 Unknown History fentanyl 100 mcg/hr transdermal 1 patch transdermal Q72H 07/03/24 Unknown History patch lenalidomide 15 mg capsule mg PO 07/03/24 Unknown History (Revlimid) magnesium oxide 400 mg (241.3 mg 400 mg PO QDAY 07/03/24 Unknown History magnesium) tablet omeprazole 40 mg capsule,delayed mg PO DAILY 07/03/24 Unknown History release oxycodone 15 mg tablet 15 mg PO Q4H PRN 07/03/24 Unknown History trazodone 50 mg tablet 50 mg PO QHS PRN 07/03/24 Unknown History mecobalamin (vitamin B12) 1,000 2,000 mcg PO DAILY 3 months #90 ea 07/05/24 Unknown Rx mcg lozenges tamsulosin 0.4 mg capsule (Flomax) 0.4 mg PO QHS #30 caps 07/15/24 Unknown Rx Allergy/AdvReac Type Severity Reaction Status Date / Time No Known Allergies Allergy Verified 08/22/24 14:22 Family History Other Adopted Surgical History Hx of cholecystectomy Cell transplant Hx of umbilical hernia repair Hx of gastric bypass Social History household members: spouse current occupational status: disabled 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 Smoking Status: Never smoker Electronic Cigarette Use: not used alcohol intake: never substance use type: does not use do you feel safe at home: Yes EXAM Physical Exam Const Vital Signs: 08/22/24 14:21 08/22/24 15:35 08/22/24 16:00 Temperature 98.3 F Temperature Source Temporal Pulse Rate 102 H 80 Respiratory Rate 17 Respiratory Effort Normal Respiratory Pattern Normal Blood Pressure 146/103 H 141/96 H Blood Pressure Mean 117 111 Pulse Ox 100 97 Oxygen Delivery Method Room Air 08/22/24 17:00 08/22/24 18:00 08/22/24 19:00 Temperature Temperature Source Pulse Rate 74 75 78 Respiratory Rate 13 17 20 H Respiratory Effort Respiratory Pattern Blood Pressure 145/92 H 152/91 H 145/99 H Blood Pressure Mean 109 111 114 Pulse Ox 97 99 99 Oxygen Delivery Method Room Air MDM MDM MDM Narrative Medical decision making narrative: HISTORY OF PRESENT ILLNESS: 53-year-old male history of hypertension, alcohol use, hyperlipidemia, type 2 diabetes status post gastric bypass presents with syncope. He notes he has been urinating blood since Monday. He notes he passed out in the shower this morning. Notes he was in the shower. He is washing his legs. He was bent over. He notes nausea and dizziness prior to passing out. Notes that next thing he knew he was down in the position. He is unsure if he hit his head but does not have any head pain. Denies taking blood thinners. He does note blood in his urine for the last 4 days. Notes last 6 months of intermittent blood when he wipes. REVIEW OF SYSTEMS: Pertinent positives: Syncope, hematuria Pertinent negatives: Chest pain PHYSICAL EXAM: Nursing triage notes reviewed, Vital signs reviewed Constitutional: please see [facility] HENT: MMM Eyes: Pupils equal round and reactive to light, Extraocular muscles intact Neck: No stridor, no JVD, full neck ROM Lungs: Clear to auscultation, No wheezing or rales. No increased work of breathing, no conversational dyspnea, no accessory muscle use, no nasal flaring. No respiratory distress noted Heart: Regular rate and rhythm, No murmurs, No rubs and No gallops, 2+ distal pulses (radial, femoral, posterior tibial) in all extremities Abdomen: Soft, there is no tenderness, rigidity, rebound or guarding, no obvious peritoneal signs, no palpable pulsatile abdominal masses, no auscultated abdominal bruit : No CVAT Extremities: No edema Neuro: No new focal neurological deficits, cranial nerves II through XII intact, 5/5 strength in all present extremities. Intact sensation to light touch in all present extremities, 2+ reflexes bilateral patella tendons. Skin: No rash or lesions noted MEDICAL DECISION MAKING: Chief Complaint: Syncope, hematuria External records reviewed: Reviewed prior cardiovascular testing Factors affecting care: as per HPI Social determinants of health: none History obtained from others: none Consults: none [facility] Narrative: Patient was initially hemodynamically stable, afebrile and nontoxic-appearing. Saturating 100% room air. Exam without signs of trauma. No cephalhematoma. No neck pain, midline cervical spine step-offs or deformity. No focal neurologic deficits. I considered the following differential diagnosis: Anemia, arrhythmia, electrolyte disturbance, ACS I obtained a broad lab and imaging workup to further elucidate the etiology of the patient's complaints The patient had no prodrome of headache to suggest subarachnoid hemorrhage. No prodrome of chest pain or shortness of breath to suggest aortic dissection or PE. No prodrome severe abdominal pain to suggest AAA. Initially resuscitated patient 500 cc bolus. ALL IMAGES (IF OBTAINED) HAVE BEEN PERSONALLY REVIEWED AND INTERPRETED BY MYSELF. EKG with normal sinus rhythm rate of 76, left axis deviation, normal intervals, no STEMI Urinalysis consistent with UTI will send for culture and start on empiric antibiotics high-sensitivity troponin is negative, no evidence of myocardial ischemia CBC with no leukocytosis, noted stable anemia, noted severe thrombocytopenia High-sensitivity troponin is negative, no evidence of myocardial ischemiax2, ruled out by high-sensitivity protocol with a initial troponin less than 22 with a delta less than 6 I have personally reviewed the patient's chest x-ray. Chest x-ray is unremarkable for pulmonary edema, pneumothorax, pneumonia or focal cardiopulmonary abnormality. The synthesis of the patient's history, physical exam, labs images suggest no acute life-limiting etiology Discussed the importance of following up with urology given hematuria although I suspect is related to UTI. Will give prophylactic antibiotics in form of nitrofurantoin. The patient and/or family, caregivers express understanding. The patient and/or family, caregivers agrees with the plan. Shared decision making: I will have a discussion with the patient and or visitors regarding risk/benefits of further testing or admission. They will be made aware of of the risk/benefits inherent in this decision they will be given the opportunity to voice understanding. Total critical care time today provided was at least 0 minutes. This excludes separately billable procedures. Critical care time (if documented) is secondary to the patient having high probability of clinically significant/life threatening deterioration in the patient's condition which required my urgent intervention. Impression: 1. Hematuria 2. Syncope 3. Anemia 4. Thrombocytopenia 5. UTI Dispo: Discharge home This note was generated with [employer] dictation software. It may contain incorrect words, spelling, and punctuation that were not noted in review of the chart prior to signing. Lab Data Labs: Laboratory Results - last 24 hr 08/22/24 08/22/24 08/22/24 15:37 15:45 17:50 WBC 2.9 L RBC 3.83 L Hgb 11.9 L Hct 36.2 L MCV 94.5 H MCH 31.1 MCHC 32.9 RDW Std Deviation 64.8 H RDW Coeff of Darling 18.5 H Plt Count 63 L MPV 12.2 H Immature Gran % (Auto) 0.300 Neut % (Auto) 62.0 Lymph % (Auto) 23.9 [place] % (Auto) 10.7 H Eos % (Auto) 2.8 Baso % (Auto) 0.3 Absolute Neuts (auto) 1.8 L Absolute Lymphs (auto) 0.69 L Nucleated RBC % 0 Differential Comment SCANNED Sodium 136 Potassium 3.8 Chloride 101 Carbon Dioxide 25.9 Anion Gap 10 BUN 14 Creatinine 0.91 Estim Creat Clear Calc 114.79 Est GFR (MDRD) Non-Af 100 BUN/Creatinine Ratio 14.8 Glucose 129 H Calcium 8.8 Troponin T High Sens 22 Troponin T Hi Sens 2 Hr 21 Urine Color Yellow Urine Clarity Sl. Cloudy Urine pH 6.0 Ur Specific Ebony 1.025 Urine Protein 100 H Urine Glucose (UA) Normal Urine Ketones 5 H Urine Occult Blood 250 H Urine Nitrite Positive H Urine Bilirubin Negative Urine Urobilinogen 1 H Ur Leukocyte Esterase 500 H Urine RBC 10-25 SEEN Urine WBC 50-100 SEEN Ur Squamous Epith Cells 5-10 SEEN Amorphous Sediment 1+ URATE Urine Bacteria 1+ Urine Mucus 0 SEEN Radiography Diagnostic Testing: Clinical Impression(s) from Imaging Studies Chest X-Ray 08/22/24 15:33 IMPRESSION: No acute cardiopulmonary process. [facility] Triage Chief Complaint: Syncope ED Provider: Ankit Smith Dx/Rx/DC Orders Prescriptions: No Action prochlorperazine maleate 10 mg tablet 10 mg PO Q12H acyclovir 400 mg tablet 400 mg PO DAILY Qty: 90 1RF aspirin [Adult Low Dose Aspirin] 81 mg tablet,delayed release (DR/EC) 81 mg PO DAILY cyclobenzaprine 10 mg tablet PO 3XD omeprazole 40 mg capsule,delayed release(DR/EC) PO DAILY magnesium oxide 400 mg (241.3 mg magnesium) tablet 400 mg PO QDAY lenalidomide [Revlimid] 15 mg capsule PO Patient Comments: [NO ORIGINAL SIG] fentanyl 100 mcg/hr patch 72 hour 1 patch transdermal Q72H colestipol 1 gram tablet 1 g PO ONCE trazodone 50 mg tablet 50 mg PO QHS PRN oxycodone 15 mg tablet 15 mg PO Q4H PRN calcium carbonate-vitamin D3 [Oyster Shell Calcium-Vit D3] 500 mg-5 mcg (200 unit) tablet 1 tab PO BID fentanyl 25 mcg/hr Patch 72 Hour 1 patch TRANSDERMAL Q72H potassium 20 mg tablet,chewable 20 mg PO BID atorvastatin 10 mg tablet 10 mg PO DAILY Qty: 90 1RF cholecalciferol (vitamin D3) 25 mcg (1,000 unit) capsule 25 mcg PO DAILY Qty: 90 1RF amlodipine 10 mg tablet 10 mg PO DAILY Qty: 90 0RF mecobalamin (vitamin B12) 1,000 mcg lozenge 2,000 mcg PO DAILY 90 Days Qty: 90 0RF Rx Instructions: allow to dissolve in mouth OR may chew lightly before swallowing tamsulosin [Flomax] 0.4 mg capsule 0.4 mg PO QHS Qty: 30 1RF Primary Care Provider: Karla Washington Referrals: Karla Washington MD [Primary Care Provider] - Print Language: Turkish
--- NOTE | 2024-08-22 15:33 | EKG12_ITS ---
Test Reason : Blood Pressure : */* mmHG Vent. Rate : 76 BPM Atrial Rate : 76 BPM P-R Int : 164 ms QRS Dur : 102 ms QT Int : 398 ms P-R-T Axes : -19 -29 -22 degrees QTcB Int : 447 ms Normal sinus rhythm Nonspecific T wave abnormality Abnormal ECG Confirmed by GLORY GARCIA, GRADY ([id number]), film and video editor KP JUDGE ([id number]) on 08/26/2024 10:56:49 AM Referred By: Confirmed By: GRADY HOLDER MD
--- NOTE | 2024-08-22 15:33 | RAD_ITS ---
PROCEDURE: CHEST 1 VIEW (PORTABLE) 08/22/2024 REASON FOR EXAM: SYNCOPE TECHNIQUE: Frontal view of the chest. COMPARISON: 11/16/2022 FINDINGS: The heart size is normal. The lungs are clear. RAD/Chest 1 View (Portable) IMPRESSION: No acute cardiopulmonary process. Reading Location: [facility]
[2024-08-22 15:44] LABS: Mucous, Urine 0 SEEN /hpf (<or=2+)
[2024-08-22 15:59] LABS: Color, Urine Yellow (Yellow); Glucose, Dipstick Normal (Normal); Ketone-Dipstick 5 mg/dl (Negative); Leukocyte Esterase-Dipstick 500 /ul (Negative); Nitrite-Dipstick Positive (Negative); Occult Blood-Urine 250 /ul (Negative); Protein-Dipstick 100 mg/dl (Negative); Specific Gravity, Urine 1.025 (1.002-1.030); Urine Bilirubin Dipstick Negative (Negative); Urine Clarity Sl. Cloudy (Clear); Urine Urobilinogen 1 mg/dl (Normal)
[2024-08-22 16:00] VITALS: BP 141/96; PULSE 80; O2SAT 97
[2024-08-22 16:09] LABS: Absolute Lymphocyte Count 0.69 X10^3/uL (0.83-4.51); Absolute Neutrophil Count 1.8 X10^3/uL (2.0-7.7); Anion Gap 10 (5-15); BUN 14 mg/dL (4-19); BUN/Creat Ratio 14.8 RATIO (10-20); Basophil# 0.01 X10^3/uL; Basophil% 0.3 % (0-1); Calcium,Total 8.8 mg/dL (7.6-11.0); Carbon Dioxide 25.9 mmol/L (21.0-32.0); Chloride 101 mmol/L (98-108); Creatinine, Serum 0.91 mg/dL (0.70-1.20); EST Glomerular Filtration Rate 100 (>60); Eosinophil# 0.08 X10^3/uL; Eosinophils% 2.8 % (0-5); Estimated Creatinine Clearance 114.79 ml/min (50-250); Glucose 129 mg/dL (70-99); Hematocrit 36.2 % (40-54); Hemoglobin 11.9 g/dL (13.0-16.5); Lymphocyte # 0.69 X10^3/ul (0.83-4.51); Lymphocyte % 23.9 % (19-41); Mean Corp Hgb Conc 32.9 g/dL (32-36); Mean Corpuscular Hgb 31.1 pg (27.0-32.0); Mean Corpuscular Volume 94.5 fL (80-94); Mean Platelet Vol. 12.2 fl (6.2-12.0); Monocyte# 0.31 X10^3/uL; Monocyte% 10.7 % (0-10); NRBC Flagged by Analyzer 0 % (0-5); Neutrophil # 1.79 X10^3/uL (2.7-7.7); POSITIVE COUNT YES; Platelet Count 63 K/mm3 (150-450); Potassium 3.8 mmol/L (3.3-5.1); RBC Distribution Width CV 18.5 % (11.6-14.6); RBC Distribution Width SD 64.8 fl (35.1-43.9); Red Blood Count 3.83 M/mm3 (4.6-6.2); Sodium Level 136 mmol/L (133-145); Troponin T High Sensitivity 22 ng/L (<=22); White Blood Count 2.9 K/mm3 (4.4-11.0)
[2024-08-22 16:15] LABS: White Blood Cells 50-100 SEEN /hpf (0-5)
[2024-08-22] MEDS: 0.9% Normal Saline (500mL Bag) 500 ML 1000 ML IV (16:15)
[2024-08-22 16:16] LABS: Differential Indicated SCAN CRITERIA MET
[2024-08-22 16:16] LABS: Amorphous Sediment 1+ URATE; Bacteria 1+ /hpf (None Seen); Red Blood Cells-Urine 10-25 SEEN /hpf (0-5); Squamous Epithelial Cells - UA 5-10 SEEN /hpf (0-5)
[2024-08-22 16:39] LABS: Differential Comment SCANNED
[2024-08-22 17:00] VITALS: BP 145/92; PULSE 74; RESP 13; O2SAT 97
[2024-08-22 18:00] VITALS: BP 152/91; PULSE 75; RESP 17; O2SAT 99
[2024-08-22 18:11] LABS: Troponin T High Sens 2 HR 21 ng/L (<=22)
[2024-08-22 19:00] VITALS: BP 145/99; PULSE 78; RESP 20; O2SAT 99
[2024-08-22 19:47] VITALS: BP 145/99; PULSE 78; RESP 20; TEMP 36.6; O2SAT 99
== END 2024-08-22 19:48 | disposition home or self-care (01) ==
PROVIDERS: Emergency Provider Emergency Medicine; PCP Internal Medicine; Visit Provider Emergency Medicine
DX: R55 Syncope and collapse (principal); Z94.84 Stem cells transplant status; E11.9 Type 2 diabetes mellitus without complications; N39.0 Urinary tract infection, site not specified; E78.00 Pure hypercholesterolemia, unspecified; D69.6 Thrombocytopenia, unspecified; R31.9 Hematuria, unspecified; I10 Essential (primary) hypertension; D64.9 Anemia, unspecified; Z79.82 Long term (current) use of aspirin; Z79.899 Other long term (current) drug therapy; Z90.49 Acquired absence of other specified parts of digestive tract
CPT/HCPCS: 71045; 80048; 81001; 84484; 85025; 85027; 87077; 87086; 87088; 87186; 93005; 96360; 96361; 99284

== ENCOUNTER → 2024-09-20 | Outpatient (CLI) | payer OTHER, SELFPAY ==
[2024-09-20 08:30] LABS: Bacteria 0 SEEN /hpf (None Seen); Mucous, Urine 0 SEEN /hpf (<or=2+); Red Blood Cells-Urine 0 SEEN /hpf (0-5); White Blood Cells 0 SEEN /hpf (0-5)
[2024-09-20 08:50] LABS: Color, Urine Yellow (Yellow); Glucose, Dipstick Normal (Normal); Ketone-Dipstick Negative (Negative); Leukocyte Esterase-Dipstick 25 /ul (Negative); Nitrite-Dipstick Negative (Negative); Occult Blood-Urine 10 /ul (Negative); Protein-Dipstick 15 mg/dl (Negative); Urine Bilirubin Dipstick Negative (Negative); Urine Clarity Clear (Clear); Urine Urobilinogen 4 mg/dl (Normal); Urine pH 6.5 (5.0 - 8.0)
[2024-09-20 09:10] LABS: Erythrocyte Sedimentation Rate < 1 mm/hr (0-20)
[2024-09-20 09:14] LABS: Squamous Epithelial Cells - UA 0-5 SEEN /hpf (0-5)
[2024-09-20 09:52] LABS: AST(SGOT) 102 U/L (<=37); Alanine Aminotransfer ALT/SGPT 102 U/L (<=46); Albumin, Serum 3.8 g/dL (3.5-5.0); Alkaline Phosphatase 149 U/L (40-129); Bilirubin, Direct 0.48 mg/dL (0.00-0.30); Cholesterol 129 mg/dL (<=200); Globulin 2.2 g/dL (2.2-4.2); High Density Lipoprotein 83 mg/dL; Low Density Lipoprotein Calc. 33 mg/dL; Total Bilirubin 0.86 mg/dL (0.00-1.30); Triglycerides 65 mg/dL; Very Low Density Lipoprotein 13 mg/dL (5-40); cholesterol:hdl ratio screen 1.56
[2024-09-20 10:22] LABS: Thyroid Stim Hormone (TSH) 0.815 uIU/mL (0.300-4.200); Vitamin B12 2707 pg/mL (180-914)
--- NOTE | 2024-09-20 10:35 | CDU_ITS ---
Reason For Study Reason For Study: CVA Rt. Velocities/BP Lt. Velocities/BP Prox CCA 96/25.6 cm/sec. Prox CCA 76.8/23.9 cm/sec. Mid CCA 79.5/24.5 cm/sec. Mid CCA 81.5/25.8 cm/sec. Dist CCA 79.5/25.6 cm/sec. Dist CCA 64.5/24.8 cm/sec. Prox ICA 53.5/22.9 cm/sec. Prox ICA 70.2/23 cm/sec. Mid ICA 76.1/30.8 cm/sec. Mid ICA 86.3/35.2 cm/sec. Dist ICA 84.4/34.3 cm/sec. Dist ICA 89.1/36.2 cm/sec. Rt. ICA/CCA = 1.06. Lt. ICA/CCA = 1.09. Prox ECA 43.7/6.9 cm/sec. Prox ECA 68.3/15.4 cm/sec. Rt. Vert. 53.6/23 cm/sec. Lt. Vert. 55.7/23.7 cm/sec. Right Extracranial There is homogeneous, smooth atherosclerotic plaque noted in the right common carotid artery. There is heterogeneous, irregular atherosclerotic plaque noted in the right internal carotid artery. There is intimal thickening but no significant atherosclerotic plaque noted in the right external carotid artery. Antegrade flow is noted in the right vertebral artery. Left Extracranial There is homogeneous, smooth atherosclerotic plaque noted in the left common carotid artery. There is homogeneous, smooth atherosclerotic plaque noted in the left internal carotid artery. There is intimal thickening but no significant atherosclerotic plaque noted in the left external carotid artery. Antegrade flow is noted in the left vertebral artery. Procedure Carotid Duplex 30442. This is a Carotid Duplex examination using B-mode, color flow and specral Doppler. Exam performed in department. VL/Carotid Duplex Ultrasound Interpretation Summary Mild (<50%) stenosis right extracranial internal carotid. Mild (<50%) stenosis left extracranial internal carotid. Flow within the vertebral arteries is antegrade bilaterally. Ordering Physician: Karla Washington Referring Physician: Karla Washington Performed By: Irene Cardenas RVT
[2024-09-23 12:08] LABS: ANTINUCLEAR ANTIBODIES DIRECT Negative (Negative); Vitamin D 1,25-Dihydroxy 77.3 pg/mL (24.8-81.5)
== END | disposition home or self-care (01) ==
LOC: CVS 10:34
PROVIDERS: Psychiatry & Neurology Neurology; PCP Internal Medicine; Referring Provider Internal Medicine; Visit Provider Internal Medicine
DX: G62.9 Polyneuropathy, unspecified (principal); R31.9 Hematuria, unspecified; I65.23 Occlusion and stenosis of bilateral carotid arteries
CPT/HCPCS: 36415; 80061; 80076; 81001; 81240; 81241; 82607; 82652; 82747; 84425; 84443; 85014; 85300; 85301; 85302; 85303; 85305; 85306; 85652; 86038; 86147; 86160; 86162; 87086; 93880

== ENCOUNTER → 2024-10-11 | Outpatient (CLI) | payer OTHER, SELFPAY ==
--- NOTE | 2024-10-11 08:02 | MRI_ITS ---
PROCEDURE: BRAIN W/WO CONTRAST, 10/11/2024 REASON FOR EXAM: SUSPECTED CEREBELLAR STROKE; HX MULTIPLE MYELOMA COMPARISON: 08/05/2024 ; note that images only are available for review, the report is not available at the time of the dictation. TECHNIQUE: Multisequence multiplanar MRI brain was performed with and without intravenous contrast. IV contrast: 20 mL Clariscan. FINDINGS: Cerebrum: Unremarkable. Cerebellum: No acute infarct. Ill-defined foci of enhancement in the bilateral cerebellar hemispheres measuring 11 x 3 mm on the LEFT and 5 x 4 mm on the RIGHT, similar on the LEFT and not previously seen on the RIGHT. Additional 2 x 3 mm focus of enhancement within the vermis was also not previously seen. These are essentially T1/T2 and FLAIR isointense, however there is apparent associated facilitated diffusion associated with the bilateral hemisphere lesions. Brainstem: Unremarkable. Ventricles/extra-axial spaces: Unremarkable. Cavum septum pellucidum and cavum vergae, normal variants. Major flow voids: Grossly unremarkable within limits of nondedicated technique. Paranasal sinuses: Trace fluid in the mastoid air cells.. Scalp/calvarium: Similar 5 mm enhancing focus in the high RIGHT parietal calvarium. Orbits: Grossly unremarkable within limits of nondedicated technique. MRI/Brain W/WO Contrast IMPRESSION: 1. No acute infarct identified. 2. Similar dominant 11 mm LEFT cerebellar enhancing lesion. A 5 mm enhancing l esion in the RIGHT cerebellar hemisphere and a 3 mm enhancing lesion in the cerebellar vermis are new from 07/16/2024. Recommen d clinical/oncologic follow-up. 3. Similar 5 mm enhancing focus in the high RIGHT parietal calvarium. Attentio n on follow-up recommended. 4. Additional description as above. Reading Location: [id number]
== END | disposition home or self-care (01) ==
LOC: MRI 07:42
PROVIDERS: PCP Internal Medicine; Referring Provider Psychiatry & Neurology Neurology; Visit Provider Psychiatry & Neurology Neurology
DX: I67.9 Cerebrovascular disease, unspecified (principal)
CPT/HCPCS: 70553; A9575

== ENCOUNTER → 2024-10-16 | Outpatient (CLI) | payer OTHER, SELFPAY ==
--- NOTE | 2024-10-16 15:04 | NEURO_ITS ---
NCS and/or EMG Patient Report Ordering Doctor: Guicho Owusu DATE OF SERVICE: 10/16/24 Willie presents with complaints of numbness and tingling in both feet. Electrodiagnostic findings: Left peroneal motor nerve demonstrates normal distal latency, amplitude and conduction velocity. Right peroneal motor nerve de monstrates normal distal latency, amplitude and conduction velocity. Tibial motor response within normal limits bilaterally. Prolonged right tibial F?wave. Prolonged H?reflex bilaterally. Prolonged sural latency is noted bilaterally. Normal superficial peroneal response bilaterally. Needle EMG testing was performed in the lower limbs. All muscles tested showed no evidence of denervation with normal motor unit action potentials. Electrodiagnostic impression: This is an abnormal study in the lower limbs 1. Electrodiagnostic findings suggestive of polyneuropathy, with sensory nerve involvement. Would also consider evaluation for potential small fiber neuropathy. 2. No electrodiagnostic evidence is noted for lumbosacral radiculopathy Multi Select Codes Neurology Neurology Interp Codes: 17540-20 Musc test done w/n test comp (interp) (2) and 86751-75 Nrv cndj test 9-10 studies (interp)
== END | disposition home or self-care (01) ==
PROVIDERS: PCP Internal Medicine; Referring Provider Psychiatry & Neurology Neurology; Visit Provider Psychiatry & Neurology Neurology
DX: G62.9 Polyneuropathy, unspecified (principal); R20.2 Paresthesia of skin
CPT/HCPCS: 95886; 95911

== ENCOUNTER → 2024-11-14 | Outpatient (CLI) | payer OTHER, SELFPAY ==
[2024-11-14 08:49] LABS: Absolute Lymphocyte Count 0.86 X10^3/uL (0.83-4.51); Absolute Neutrophil Count 0.7 X10^3/uL (2.0-7.7); Basophil# 0.02 X10^3/uL; Eosinophil# 0.07 X10^3/uL; Eosinophils% 3.6 % (0-5); Hematocrit 35.5 % (40-54); Hemoglobin 11.9 g/dL (13.0-16.5); Lymphocyte # 0.86 X10^3/ul (0.83-4.51); Lymphocyte % 44.1 % (19-41); Mean Corp Hgb Conc 33.5 g/dL (32-36); Mean Corpuscular Volume 98.3 fL (80-94); Monocyte# 0.28 X10^3/uL; Monocyte% 14.4 % (0-10); NRBC Flagged by Analyzer 0 % (0-5); Neutrophil # 0.72 X10^3/uL (2.7-7.7); Neutrophil % 36.9 % (47-70); POSITIVE COUNT YES; POSITIVE DIFFERENTIAL YES; Platelet Count 68 K/mm3 (150-450); RBC Distribution Width CV 16.2 % (11.6-14.6); Red Blood Count 3.61 M/mm3 (4.6-6.2)
[2024-11-14 08:52] LABS: Differential Indicated SCAN CRITERIA MET
[2024-11-14 10:06] LABS: Acanthocytes RARE; Ovalocyte 1+; Platelet Estimate MOD DEC (ADEQ); Schistocytes RARE
== END | disposition home or self-care (01) ==
LOC: LAB 08:09
PROVIDERS: PCP Internal Medicine
DX: C90.00 Multiple myeloma not having achieved remission (principal)
CPT/HCPCS: 36415; 85025